=== PATIENT | male | born 1960 ===

== ENCOUNTER 2020-08-17 09:46 | Day surgery (SDC) | payer MEDICAID, SELFPAY ==
--- NOTE | 2020-08-16 09:13 | P.CONAN_ITS ---
Documented by User: Gayle Isidro 08/16/20 13:29 HPI - Anesthesia Eval Consult details Narrative: 59yo M for Upper Endoscopy [facility] Past Medical History Medical History (Updated 08/16/20 @ 12:58 by Gurinder Alvarado) Asthma Chronic back pain Depression H/O fracture of skull Hepatitis C Substance abuse Surgical History Surgical History (Updated 08/16/20 @ 12:58 by Gurinder Alvarado) H/O right inguinal hernia repair Social History Social History Smoking Status: Current every day smoker Cigarettes Per Day: 5.0 Use of substances other than those prescribed or required for medical reasons: No 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 Advance Directives: No Advance Directives Information Provided: No Advance Directives on File: No Meds Allergies Allergy/AdvReac Type Severity Reaction Status Date / Time No Known Allergies Allergy Unverified 06/02/20 17:09 [No Known Allergies*] Home Medications Medication Instructions Recorded Confirmed Type albuterol sulfate 2 puff INHALATION Q4-6H PRN 08/16/20 08/16/20 History budesonide-formoterol [Symbicort] 2 puff INHALATION DAILY 08/16/20 08/16/20 History gabapentin 300 mg PO TID 08/16/20 08/16/20 History Exam Exam Date and Time: August 16, 2020 0913 Assessment and Plan Assessment Anesthesia Assessment: Chart Reviewed Documented by User: Jazmin Boswell 08/17/20 11:16 [facility] Past Medical History Medical History (Updated 08/16/20 @ 12:58 by Gurinder Alvarado) Asthma Chronic back pain Depression H/O fracture of skull Hepatitis C Substance abuse Surgical History Surgical History (Updated 08/16/20 @ 12:58 by Gurinder Alvarado) H/O right inguinal hernia repair Social History Social History Smoking Status: Current every day smoker Cigarettes Per Day: 5.0 Use of substances other than those prescribed or required for medical reasons: No 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 Advance Directives: No Advance Directives Information Provided: No Advance Directives on File: No Meds Allergies Allergy/AdvReac Type Severity Reaction Status Date / Time No Known Allergies Allergy Unverified 06/02/20 17:09 [No Known Allergies*] Home Medications Medication Instructions Recorded Confirmed Type albuterol sulfate 2 puff INHALATION Q4-6H PRN 08/16/20 08/16/20 History budesonide-formoterol [Symbicort] 2 puff INHALATION DAILY 08/16/20 08/16/20 History gabapentin 300 mg PO TID 08/16/20 08/16/20 History Exam Airway Mallampati Class: II (Upper false tooth removable) TM Dist: >3cm Neck ROM: Full Partial: Lower Heart: RRR Lungs: CTA BL Assessment and Plan Assessment Anesthesia Assessment: Anesthesia Plan Discussed and Chart Reviewed Final Anesthetic Review NPO: Yes ASA Class: III Final Preanesthetic Review: Meds/Allgs Chart Reviewed and Consent Obtained/Reviewed Patient Risk: Intermediate Procedure Risk: Intermediate Anesthetic Plan Anesthetic Plan: MAC: Disposition: Standard PACU
[2020-08-16 12:55] VITALS: BMI 20.2
[2020-08-17 11:26] VITALS: BP 169/96; PULSE 49; RESP 16; TEMP 36.9; O2SAT 100
[2020-08-17] MEDS: Lactated Ringers 1,000 ML 100 ML IVCONT (11:43)
--- NOTE | 2020-08-17 12:15 | P.HPSUR_ITS ---
Pre-Procedural Eval Section B Chief Complaint: Hepatic Cirrhosis Relevant Family History (Specify if Yes): No Relevant Social History: Tobacco Use Present Medications: see Short Stay Collaborative assessment Medical History: Significant History (Asthma Chronic back pain Depression H/O fracture of skull Hepatitis C Substance abuse) History of Previous Operations: Relevant previous surgery/procedure and date(s) (hernia repair) Allergies: Allergies Allergy/AdvReac Type Severity Reaction Status Date / Time No Known Allergies Allergy Unverified 06/02/20 17:09 [No Known Allergies*] Review of Systems Sugical H&P ROS: Negative: Constitution, Cardiovascular, Respiratory, Neurolog ical, Psychiatric, Hem-Onc, Allergic/Immunologic, Gastrointestinal, Genitourinary, Musculoskeletal, Integumentary, Endocrine and Eyes/Ears/Nose/Throat Exam Surgical H&P Exam: Normal: HEENT, Normal: Heart, Normal: Lungs, Normal: Extremities, Normal: Abdomen, Normal: Skin and Normal: Neurological Plan Diagnosis/Plan: Unchanged Patient has been examined and remains a candidate for the planned procedure
--- NOTE | 2020-08-17 12:16 | PM.OP ---
Brief Operative Note Date of Service: 08/17/20 Pre-op diagnosis: variceal screening Post-op diagnosis: same Procedure: see op note Surgeon: Zuleika Menjivar MD Anesthesia: MAC Estimated blood loss (mL): 0 Condition: stable Disposition: PACU
--- NOTE | 2020-08-17 12:16 | W.PM.OPN ---
Operative Note Operative Note Date of Service: 08/17/20 Narrative: Procedure Description: EGD FLEXIBLE TRANSORAL UPPER GASTROINTESTINAL ENDOSCOPY UPPER ENDOSCOPY Consent: Indications for the procedure and potential complications of bleeding, perforation, reaction to medications and missed diagnosis were discussed with the patient and informed consent was obtained. Instrument: Olympus GIF H 190 J mid size upper endoscope Monitoring: Vital signs and clinical assessment, continuous EKG monitoring, Pulse oximetry, Carbon Dioxide monitoring and blood pressure monitoring were done throughout the procedure. Procedure: The patient was placed in the left lateral decubitis position and pre-procedure medications were administered and a bite block was placed. The endoscope was inserted into the mouth and advanced under direct vision to the third part of duodenum. A careful inspection was made as the upper endoscope was withdrawn including a retroflexed examination of the proximal stomach; Findings and interventions are described below. Findings: Larynx:normal Esophagus: GE junction at 40 cm, diaphragm hiatus at 42 cm, LA grade A esophagitis noted. No esophageal varices seen Stomach: Patchy gastric erythema. Biopsies were obtained to r/o h pylori. Grade 2 flap valve on retroflexed examination of the cardia. Duodenum: Normal bulb and descending duodenum, Intervention: Biopsies as noted above Impression/Findings: gastritis esophagitis small hiatal hernia PLAN: can use low dose PPI if having sx of reflux repeat EGD in 2 yrs or earlier if any liver decompensation if h pylori pos then treat
[2020-08-17 12:33] VITALS: BP 124/84; PULSE 72; RESP 16; TEMP 36.3; O2SAT 98
[2020-08-17 12:49] VITALS: PULSE 52; RESP 16; O2SAT 98
[2020-08-17 13:02] VITALS: BP 151/92; PULSE 56; RESP 16; O2SAT 100
--- NOTE | 2020-08-17 13:23 | HO.POSTANES ---
Post Anesthesia Evaluation Post Anesthesia Evaluation Vital Signs: Vital Signs Temp Pulse Resp BP Pulse Ox 08/17/20 13:02 97.3 F 56 16 151/92 H 100 08/17/20 12:49 52 16 98 08/17/20 12:33 97.3 F 72 16 124/84 98 08/17/20 11:26 98.4 F 49 L 16 169/96 H 100 Anesthesia: Monitored Mental Status: Awake Pain Control: Satisfactory Nausea/Vomiting: None Hydration: Adequate Anesthesia-Related Issues: No Anes. Related Issues
== END 2020-08-17 13:58 | disposition home or self-care (01) ==
PROVIDERS: Visit Provider Internal Medicine Gastroenterology
PROC: 0DJ08ZZ Inspection of Upper Intestinal Tract, Via Natural or Artificial Opening Endoscopic (ICD-10-PCS; CPT 43235; principal; 2020-08-17 10:40)
DX: K74.60 Unspecified cirrhosis of liver (principal); B19.20 Unspecified viral hepatitis C without hepatic coma; K29.50 Unspecified chronic gastritis without bleeding; B96.81 Helicobacter pylori [H. pylori] as the cause of diseases classified elsewhere; K44.9 Diaphragmatic hernia without obstruction or gangrene; K20.90 Esophagitis, unspecified without bleeding; F11.20 Opioid dependence, uncomplicated; J45.909 Unspecified asthma, uncomplicated; Z79.51 Long term (current) use of inhaled steroids; Z79.899 Other long term (current) drug therapy
CPT/HCPCS: 43239; 88305; 88342

== ENCOUNTER → 2020-08-31 11:01 | Outpatient (BNVA) | payer MEDICAID, SELFPAY | PROVIDERS: PCP Internal Medicine; Referring Provider Internal Medicine; Visit Provider Nurse Practitioner | DX: Z76.89 Persons encountering health services in other specified circumstances (principal) ==

== ENCOUNTER 2020-09-26 07:57 | Outpatient (REF) | payer MEDICAID, SELFPAY ==
--- NOTE | 2020-09-26 | US_ITS ---
EXAMINATION: US ABDOMEN LIMITED CLINICAL INFORMATION: Cirrhosis. COMPARISON: Previous CT scan most recent September 2017 and abdominal ultrasound February 2020 TECHNIQUE: Real-time imaging of the right upper quadrant abdominal viscera. FINDINGS: PANCREAS: Normal. LIVER: Liver echotexture may be slightly heterogeneous. No focal hepatic lesion. The liver is normal in size, shape and contour. There is no intrahepatic biliary duct dilatation seen. GALLBLADDER: Normal. The gallbladder is physiologically distended without evidence of stones, sludge, polyps, wall thickening or pericholecystic fluid. COMMON BILE DUCT: Normal in caliber measuring 0.1 to 0.5 cm in diameter. RIGHT KIDNEY: Normal. No hydronephrosis. No renal calculi or focal parenchymal lesions. The kidney measures 9.6 cm in maximum dimension. FREE FLUID: None. US/US abdomen limited IMPRESSION: Question slightly heterogeneous liver echotexture. No focal liver lesion is seen. Otherwise unremarkable exam.
== END 2020-09-26 07:58 | disposition home or self-care (01) ==
LOC: HO.US 07:57
PROVIDERS: PCP Family Medicine; Visit Provider Family Medicine
DX: K74.60 Unspecified cirrhosis of liver (principal)
CPT/HCPCS: 76705

== ENCOUNTER → 2020-10-12 11:25 | Outpatient (BNVA) | payer MEDICAID, SELFPAY | PROVIDERS: Visit Provider Nurse Practitioner | DX: Z76.89 Persons encountering health services in other specified circumstances (principal) ==

== ENCOUNTER 2021-03-10 10:33 | Outpatient (REF) | payer MEDICAID, SELFPAY | END 2021-03-10 10:34 | disposition home or self-care (01) | LOC: HO.LNP 10:33 | PROVIDERS: PCP Nurse Practitioner; Referring Provider Nurse Practitioner; Visit Provider Nurse Practitioner | DX: A04.8 Other specified bacterial intestinal infections (principal); K74.60 Unspecified cirrhosis of liver; F17.210 Nicotine dependence, cigarettes, uncomplicated; Z86.19 Personal history of other infectious and parasitic diseases | CPT/HCPCS: 87338; 99212 ==

== ENCOUNTER → 2021-04-25 08:40 | Outpatient (BNVA) | payer MEDICAID, SELFPAY | PROVIDERS: PCP Nurse Practitioner; Visit Provider Nurse Practitioner ==

== ENCOUNTER 2021-11-15 11:15 | Outpatient (REF) | payer MEDICAID, SELFPAY ==
--- NOTE | ~2021-11-15 | US_ITS ---
EXAMINATION: US ABDOMEN COMPLETE CLINICAL INFORMATION: Cirrhosis. HCG screening. COMPARISON: Ultrasound abdomen limited 09/26/2020 and 02/16/2020. CT abdomen and pelvis 09/26/2017. TECHNIQUE: Real-time imaging of the abdominal viscera. FINDINGS: PANCREAS: Normal. ABDOMINAL AORTA: The proximal, mid, and distal segments are normal in caliber. INFERIOR VENA CAVA: Visualized portions are normal. LIVER: Normal. The liver is normal in size. The liver contour is normal. Parenchymal echogenicity is normal. No focal hepatic lesion. There is no intrahepatic biliary duct dilatation seen. GALLBLADDER: Gallbladder wall thickness is 0.2 cm.. The gallbladder is physiologically distended without evidence of stones, sludge, polyps, wall thickening or pericholecystic fluid. COMMON BILE DUCT: Normal in caliber measuring 0.6 cm in diameter. RIGHT KIDNEY: Normal. No hydronephrosis. No renal calculi or focal parenchymal lesions. The kidney measures 9.4 cm in maximum dimension. LEFT KIDNEY: Normal. No hydronephrosis. No renal calculi or focal parenchymal lesions. The kidney measures 9.1 cm in maximum dimension. SPLEEN: Normal. The spleen measures 8.0 cm in maximum dimension. FREE FLUID: None. US/US abdomen complete IMPRESSION: Unremarkable complete abdomen ultrasound.
== END 2021-11-15 11:16 | disposition home or self-care (01) ==
LOC: HO.US 11:15
PROVIDERS: PCP Nurse Practitioner; Visit Provider Nurse Practitioner
DX: K74.60 Unspecified cirrhosis of liver (principal)
CPT/HCPCS: 76700

== ENCOUNTER 2022-05-29 09:26 | Outpatient (REF) | payer MEDICAID, SELFPAY ==
--- NOTE | ~2022-05-29 | US_ITS ---
EXAMINATION: US ABDOMEN COMPLETE CLINICAL INFORMATION: Cirrhosis of liver. COMPARISON: Ultrasound abdomen complete dated 11/15/2021. Ultrasound abdomen limited dated 09/26/2020. CT abdomen and pelvis without contrast dated 09/26/2017. TECHNIQUE: Real-time imaging of the abdominal viscera. FINDINGS: PANCREAS: Normal. ABDOMINAL AORTA: The proximal, mid, and distal segments are normal in caliber. INFERIOR VENA CAVA: Visualized portions are normal. LIVER: Normal. The liver is normal in size. The liver contour is normal. Parenchymal echogenicity is normal. No focal hepatic lesion. There is no intrahepatic biliary duct dilatation seen. GALLBLADDER: There is a small gallstone in the gallbladder. The gallbladder is otherwise normal. COMMON BILE DUCT: Normal in caliber measuring 0.7 cm in diameter. RIGHT KIDNEY: Normal. No hydronephrosis. No renal calculi or focal parenchymal lesions. The kidney measures 9.1 cm in maximum dimension. LEFT KIDNEY: There is a 3 mm echogenic density in the midpole with twinkle artifact questionable for a small stone. No hydronephrosis or focal parenchymal lesions. The kidney measures 8.7 cm in maximum dimension. SPLEEN: Normal. The spleen measures 8.1 cm in maximum dimension. FREE FLUID: None. US/US abdomen complete IMPRESSION: Small gallstone and question small left renal stone. Normal-appearing liver.
== END 2022-05-29 09:27 | disposition home or self-care (01) ==
LOC: HO.US 09:26
PROVIDERS: Visit Provider Internal Medicine
DX: K74.60 Unspecified cirrhosis of liver (principal)
CPT/HCPCS: 76700

== ENCOUNTER 2022-07-09 17:34 | Emergency (ER) | payer MEDICAID, SELFPAY ==
--- NOTE | ~2022-07-09 | XR_ITS ---
EXAMINATION: XR SHOULDER, LEFT CLINICAL INFORMATION: Fall COMPARISON: None TECHNIQUE: AP external rotation, Grashey, scapular Y, and axillary views of the left shoulder. FINDINGS: The bones and soft tissues are normal. No fracture. Glenohumeral and acromioclavicular alignment is anatomic with normal joint space. No abnormal soft tissue calcifications. XR/XR shoulder LT min 2V IMPRESSION: Normal left shoulder.
--- NOTE | ~2022-07-09 | CT_ITS ---
EXAMINATION: CT CHEST WITHOUT CONTRAST CLINICAL INFORMATION: Fall. Upper chest pain. COMPARISON: 01/16/2015 TECHNIQUE: Multidetector volumetric CT imaging of the chest was done. Axial MIP volume rendering provided. Sagittal and coronal reformatted images were obtained. This CT examination was performed using dose optimization techniques as appropriate, variously including the following: *Automated exposure control *Adjustment of mA and/or kV according to patient size (this includes techniques or standardized protocols for targeted exams where dose is matched to indication/reason for exam; i.e. 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 Mild bronchial wall thickening with scattered bronchial filling defects. Moderate centrilobular and paraseptal emphysema. No dense consolidation. No pneumothorax. Calcified granulomata are noted. Unchanged 0.3 cm subpleural left upper lobe nodule on series 5 image 270. This suggests benign etiology. MEDIASTINUM: Normal heart size. No pericardial effusion. No mediastinal lymphadenopathy. CORONARY ARTERY CALCIFICATION: None visualized on this study. PLEURA: There is no pleural effusion. No pleural mass or thickening. AXILLA: No lymphadenopathy. UPPER ABDOMEN: Unremarkable. OSSEOUS STRUCTURES: No acute fractures. The ribs are intact. The sternum is intact. Vertebral body height and alignment maintained. CT/CT chest wo IV con IMPRESSION: 1. No acute traumatic findings of the chest. 2. Moderate emphysema. Fleischner guidelines were followed.
--- NOTE | ~2022-07-09 | CT_ITS ---
EXAMINATION: CT HEAD WITHOUT CONTRAST CT CERVICAL SPINE WITHOUT CONTRAST CLINICAL INFORMATION: Fall. COMPARISON: None. TECHNIQUE: Imaging was performed from the skull base to vertex without intravenous administration of contrast. In addition, helical noncontrast CT imaging was acquired through the cervical spine and source images were reviewed along with axial reconstructions and sagittal and coronal MPRs. [This CT examination was performed using dose optimization techniques as appropriate, variously including the following: *Automated exposure control *Adjustment of mA and/or kV according to patient size (this includes techniques or standardized protocols for targeted exams where dose is matched to indication/reason for exam; i.e. extremities or head) *Use of iterative reconstruction technique] DLP: 901 mGy-cm FINDINGS: HEAD: No intracranial mass, hemorrhage, or midline shift is visualized. The ventricles and sulci are proportional. No extra-axial collections are identified. The paranasal sinuses and mastoid air cells are well aerated. CERVICAL SPINE: There is no evidence of acute cervical spine fracture. Vertebral bodies remain normal in height. Cervical vertebrae have normal alignment. There is multilevel degenerative spondylosis of the cervical spine with disc height narrowing and endplate spurs and facet joint arthrosis No pre- or paravertebral soft tissue abnormality is identified. Moderate Centrilobular emphysematous change of the upper lobes. CT/CT head/brain wo IV con IMPRESSION: 1. No acute intracranial pathology. 2. No CT evidence of acute cervical spine fracture or traumatic subluxation
--- NOTE | ~2022-07-09 | CT_ITS ---
EXAMINATION: CT HEAD WITHOUT CONTRAST CT CERVICAL SPINE WITHOUT CONTRAST CLINICAL INFORMATION: Fall. COMPARISON: None. TECHNIQUE: Imaging was performed from the skull base to vertex without intravenous administration of contrast. In addition, helical noncontrast CT imaging was acquired through the cervical spine and source images were reviewed along with axial reconstructions and sagittal and coronal MPRs. [This CT examination was performed using dose optimization techniques as appropriate, variously including the following: *Automated exposure control *Adjustment of mA and/or kV according to patient size (this includes techniques or standardized protocols for targeted exams where dose is matched to indication/reason for exam; i.e. extremities or head) *Use of iterative reconstruction technique] DLP: 901 mGy-cm FINDINGS: HEAD: No intracranial mass, hemorrhage, or midline shift is visualized. The ventricles and sulci are proportional. No extra-axial collections are identified. The paranasal sinuses and mastoid air cells are well aerated. CERVICAL SPINE: There is no evidence of acute cervical spine fracture. Vertebral bodies remain normal in height. Cervical vertebrae have normal alignment. There is multilevel degenerative spondylosis of the cervical spine with disc height narrowing and endplate spurs and facet joint arthrosis No pre- or paravertebral soft tissue abnormality is identified. Moderate Centrilobular emphysematous change of the upper lobes. CT/CT cervical spine wo IV con IMPRESSION: 1. No acute intracranial pathology. 2. No CT evidence of acute cervical spine fracture or traumatic subluxation
[2022-07-09 19:35] VITALS: BP 156/104; PULSE 81; RESP 16; TEMP 37.5; O2SAT 97; BMI 20.5
--- NOTE | 2022-07-09 22:33 | ED.FALL ---
HPI - Fall General Chief Complaint: Fall Stated Complaint: fell down stairs,head lac, Time Seen by Provider: 07/09/22 22:32 Source: patient Mode of arrival: ambulatory Limitations: no limitations History of Present Illness HPI Narrative: Patient apparently with no significant past medical history apparently was going upstairs before landing felt lightheaded, almost passed out and fell backwards hitting his left shoulder to the wall. Came here with superficial abrasion to the left eyebrow and contusion to the left shoulder patient does not happen exactly what happened but patient has this episodes in the past Related Data Home Medications Medication Instructions Recorded Confirmed albuterol sulfate 90 mcg/actuation 2 puff inhalation Q4-6H PRN 08/16/20 08/16/20 aerosol inhaler Shortness Of Breath budesonide-formoterol HFA 80 2 puff inhalation DAILY 08/16/20 08/16/20 mcg-4.5 mcg/actuation aerosol inhaler (Symbicort) gabapentin 300 mg capsule 300 mg PO TID 08/16/20 08/16/20 Previous Rx's Medication Instructions Recorded amoxicillin 500 mg capsule 1,000 mg PO BID 14 days #56 caps 08/25/20 clarithromycin 500 mg tablet 500 mg PO BID 14 days #28 tabs 08/25/20 pantoprazole 20 mg tablet,delayed 20 mg PO BID 14 days #28 tabs 08/25/20 release tramadol 50 mg tablet 50 mg PO Q6H PRN pain #20 tabs 07/10/22 Allergies Allergy/AdvReac Type Severity Reaction Status Date / Time No Known Allergies Allergy Verified 04/25/21 08:40 [No Known Allergies*] Review of Systems Review of Systems: Yes all other systems are reviewed and are negative PMFSH Past Medical History Medical History Asthma Chronic back pain Depression H/O fracture of skull Hepatitis C Substance abuse Surgical History H/O right inguinal hernia repair History of esophagogastroduodenoscopy (EGD) Family History Family History Mother Stroke Heart problem Father Stroke Heart problem Social History Social History Household Members: Friend(s) Alcohol intake: current Alcohol intake frequency: holidays/special occasions only Cigarettes Per Day: 5.0 Advance Directives: No Advance Directives Information Provided: No Current occupational status: disabled Physical Exam Vital Signs: Vital Signs: Last Vital Signs Temp 99 F 07/10/22 00:27 Pulse 76 07/10/22 00:27 Resp 16 07/10/22 00:27 BP 144/76 H 07/10/22 00:27 Pulse Ox 95 07/10/22 00:27 O2 Del Method 07/10/22 00:27 BMI result Body Mass Index 20.5 Appearance: Alert. Oriented X3. No acute distress. Eyes: PERRLA, No Nystagmus superficial abrasion left eyebrow ENT: Pharynx normal. Oral Mucosa moist Neck: Normal inspection. Neck supple. CVS: Normal heart rate and rhythm. Pulses normal. Respiratory: No respiratory distress. Equal air entry bilateral, no wheezing/rales/rhonchi Abdomen: Soft and nontender. Bowel sounds are present, no mass palpable, no CVA tenderness Skin: Skin warm and dry. Normal skin color. Normal skin turgor. Extremities: No lower extremity edema. No calf tenderness skin tear right arm, contusion to left shoulder limited abduction because of pain no deformity Neuro: Oriented X 3. No motor deficit. No sensory deficit.No cerebellar signs , cranial nerves II-XII intact Procedures Laceration Laceration 1: Site: upper extremity Side (If applicable): right Size (cm): 4 Description: other (Skin tear) Depth: simple, single layer Skin layer closed with: other (Dermabond) MDM - Fall MDM Narrative Medical decision making narrative: Patient's leukocytosis etiology not very clear no source of infection patient is febrile CT chest CT head CT C-spine in the discharge patient right arm skin tear was approximated using Dermabond Lab Data Result diagrams: 07/09/22 23:46 07/09/22 23:46 Labs: Lab Results 07/09/22 07/09/22 07/09/22 Range/Units 23:46 23:46 23:46 WBC 16.2 H (4.8-10.8) X10*3/uL RBC 4.48 L (4.60-5.80) X10*6/uL Hgb 13.9 L (14.0-18.0) g/dl Hct 40.6 L (42.0-52.0) % MCV 90.6 (80.0-98.0) fL MCH 31.0 (27.0-33.0) pg MCHC 34.2 (31.0-36.0) g/dl RDW 14.2 (11.0-16.0) % Plt Count 247 (160-400) X10*3/uL MPV 9.1 L (9.4-12.4) fL Immature Gran % (Auto) 0.4 (0.0-0.4) % Neut % (Auto) 73.9 H (45-73) % Lymph % (Auto) 17.1 L (20-40) % [place] % (Auto) 8.3 (2-11) % Eos % (Auto) 0.2 (0-4) % Baso % (Auto) 0.1 (0-2) % Lymph # (Auto) 2.8 (1.2-4.9) X10*3/uL [place] # (Auto) 1.3 H (0.1-1.2) X10*3/uL Eos # (Auto) 0.0 (0.0-0.4) X10*3/uL Baso # (Auto) 0.0 (0.0-0.2) X10*3/uL Abs Immat Gran (auto) 0.06 H (0.00-0.03) X10*3/uL Absolute Neuts (auto) 12.0 H (2.0-8.3) x10*3/uL Absolute Nucleated RBC 0.000 (0.0-0.012) X10*3/uL Nucleated RBC % (auto) 0.0 (0.0-0.2) /100WBC Sodium 142 (135-145) mmol/L Potassium 4.2 (3.3-5.1) mmol/L Chloride 103 (96-108) mmol/L Carbon Dioxide 25 (22-29) mmol/L Anion Gap 18 (12-20) BUN 15 (9-16) mg/dL Creatinine 1.04 (0.5-1.4) mg/dL Estim Creat Clear Calc 56.6 Estimated GFR > 60 Random Glucose 117 H (60-115) mg/dL Calcium 9.2 (8.4-10.2) mg/dL Magnesium 1.8 (1.6-2.6) mg/dL Total Bilirubin 0.7 (0.0-1.0) mg/dL AST 37 (5-37) U/L ALT 16 (0-40) U/L Alkaline Phosphatase 62 (39-117) U/L Troponin I High Sens 3.6 (<3.5-35.0) ng/L Total Protein 7.5 (6.5-8.0) g/dL Albumin 4.6 (3.5-5.0) g/dL Urine Color Urine Appearance Urine pH (5.0-9.0) Ur Specific [place] (1.005-1.025) Urine Protein (Neg-Trace) mg/dL Urine Glucose (UA) (Negative) mg/dL Urine Ketones (Negative) mg/dL Urine Blood (Negative) Urine Nitrite (Negative) Ur Leukocyte Esterase (Negative) 07/10/22 Range/Units 01:09 WBC (4.8-10.8) X10*3/uL RBC (4.60-5.80) X10*6/uL Hgb (14.0-18.0) g/dl Hct (42.0-52.0) % MCV (80.0-98.0) fL MCH (27.0-33.0) pg MCHC (31.0-36.0) g/dl RDW (11.0-16.0) % Plt Count (160-400) X10*3/uL MPV (9.4-12.4) fL Immature Gran % (Auto) (0.0-0.4) % Neut % (Auto) (45-73) % Lymph % (Auto) (20-40) % [place] % (Auto) (2-11) % Eos % (Auto) (0-4) % Baso % (Auto) (0-2) % Lymph # (Auto) (1.2-4.9) X10*3/uL [place] # (Auto) (0.1-1.2) X10*3/uL Eos # (Auto) (0.0-0.4) X10*3/uL Baso # (Auto) (0.0-0.2) X10*3/uL Abs Immat Gran (auto) (0.00-0.03) X10*3/uL Absolute Neuts (auto) (2.0-8.3) x10*3/uL Absolute Nucleated RBC (0.0-0.012) X10*3/uL Nucleated RBC % (auto) (0.0-0.2) /100WBC Sodium (135-145) mmol/L Potassium (3.3-5.1) mmol/L Chloride (96-108) mmol/L Carbon Dioxide (22-29) mmol/L Anion Gap (12-20) BUN (9-16) mg/dL Creatinine (0.5-1.4) mg/dL Estim Creat Clear Calc Estimated GFR Random Glucose (60-115) mg/dL Calcium (8.4-10.2) mg/dL Magnesium (1.6-2.6) mg/dL Total Bilirubin (0.0-1.0) mg/dL AST (5-37) U/L ALT (0-40) U/L Alkaline Phosphatase (39-117) U/L Troponin I High Sens (<3.5-35.0) ng/L Total Protein (6.5-8.0) g/dL Albumin (3.5-5.0) g/dL Urine Color Yellow Urine Appearance Clear Urine pH 6.5 (5.0-9.0) Ur Specific [place] <= 1.005 (1.005-1.025) Urine Protein Negative (Neg-Trace) mg/dL Urine Glucose (UA) Negative (Negative) mg/dL Urine Ketones Negative (Negative) mg/dL Urine Blood Negative (Negative) Urine Nitrite Negative (Negative) Ur Leukocyte Esterase Negative (Negative) Discharge Plan Discharge Clinical Impression: Contusion of left shoulder Patient Disposition: Home, Self-Care Instructions: Contusion in Adults (ED), Fall Prevention (ED) Additional Instructions: Apply ice take pain medication as prescribed Prescriptions: New tramadol 50 mg tablet 50 mg PO Q6H PRN (Reason: pain) Qty: 20 0RF No Action clarithromycin 500 mg tablet 500 mg PO BID 14 Days Qty: 28 0RF amoxicillin 500 mg capsule 1,000 mg PO BID 14 Days Qty: 56 0RF pantoprazole 20 mg tablet,delayed release (DR/EC) 20 mg PO BID 14 Days Qty: 28 0RF gabapentin 300 mg Capsule 300 mg PO TID albuterol sulfate 90 mcg/actuation Hfa Aerosol Inhaler 2 puff INHALATION Q4-6H PRN (Reason: Shortness Of Breath) budesonide-formoterol [Symbicort] 80-4.5 mcg/actuation Hfa Aerosol Inhaler 2 puff INHALATION DAILY Interventions: ED Discharge Assessment Last Done: 07/10/22 02:11 Discharge Date/Time: 07/10/22 02:11
--- NOTE | 2022-07-09 22:53 | ECG_ITS ---
Test Reason : WEAKNESS Blood Pressure : / mmHG Vent. Rate : 062 BPM Atrial Rate : 062 BPM P-R Int : 126 ms QRS Dur : 080 ms QT Int : 374 ms P-R-T Axes : 085 058 063 degrees QTc Int : 379 ms Normal sinus rhythm Normal ECG When compared with ECG of 06-SEP-2017 20:43, No significant change was found Referred By: Abimael Jackson Electronically Signed By:JOSE FAYE MD
[2022-07-09 23:50] LABS: MANUAL DIFF FLAG NO
[2022-07-09 23:51] LABS: Basophils Percent Auto 0.1 % (0-2); Eosinophils Percent Auto 0.2 % (0-4); Hematocrit 40.6 % (42.0-52.0); Hemoglobin 13.9 g/dl (14.0-18.0); Imm Gran Abs Auto 0.06 X10*3/uL (0.00-0.03); Imm Gran Pct Auto 0.4 % (0.0-0.4); Lymphocytes Absolute Auto 2.8 X10*3/uL (1.2-4.9); Lymphocytes Percent Auto 17.1 % (20-40); Mean Corpuscular HGB Conc 34.2 g/dl (31.0-36.0); Mean Corpuscular Volume 90.6 fL (80.0-98.0); Mean Platelet Volume 9.1 fL (9.4-12.4); Monocytes Absolute Auto 1.3 X10*3/uL (0.1-1.2); Monocytes Percent Auto 8.3 % (2-11); Neutrophils Percent Auto 73.9 % (45-73); Platelet Count 247 X10*3/uL (160-400); Red Blood Count 4.48 X10*6/uL (4.60-5.80); Red Cell Distribution Width 14.2 % (11.0-16.0); White Blood Count 16.2 X10*3/uL (4.8-10.8)
[2022-07-10 00:07] LABS: Alanine Aminotransferase 16 U/L (0-40); Albumin Level 4.6 g/dL (3.5-5.0); Alkaline Phosphatase 62 U/L (39-117); Anion Gap 18 (12-20); Aspartate Amino Transferase 37 U/L (5-37); Bilirubin Total 0.7 mg/dL (0.0-1.0); Blood Urea Nitrogen 15 mg/dL (9-16); Calcium 9.2 mg/dL (8.4-10.2); Carbon Dioxide 25 mmol/L (22-29); Chloride 103 mmol/L (96-108); Creatinine Clr Calc Pharmacy 56.6; Estimated Glomerular Filt Rate > 60; Glucose Random 117 mg/dL (60-115); Magnesium 1.8 mg/dL (1.6-2.6); Potassium 4.2 mmol/L (3.3-5.1); Sodium 142 mmol/L (135-145); Total Protein 7.5 g/dL (6.5-8.0)
[2022-07-10 00:10] LABS: Troponin-I High Sensitivity 3.6 ng/L (<3.5-35.0)
[2022-07-10 00:27] VITALS: BP 144/76; PULSE 76; RESP 16; TEMP 37.2; O2SAT 95
[2022-07-10] MEDS: oxyCODONE HCl Immed Release 5 MG TABLET 10 MG PO (01:04)
[2022-07-10 01:29] LABS: Appearance Urine Clear; Color Urine Yellow; Glucose Urine UA Negative (Negative); Leukocyte Esterase Urine Negative (Negative); Nitrite Urine Negative (Negative); PH 6.5 (5.0-9.0); Specific Gravity - Urine <= 1.005 (1.005-1.025); Urine Blood Negative (Negative); Urine Ketones Negative (Negative); Urine Protein Negative (Neg-Trace)
--- NOTE | 2022-07-10 02:11 | PC.NURSE ---
Discharge instructions reviewed with pt. Pt verbalizes understanding.
== END 2022-07-10 02:11 | disposition home or self-care (01) ==
PROVIDERS: Emergency Provider Internal Medicine
DX: S41.111A Laceration without foreign body of right upper arm, initial encounter (principal); S00.212A Abrasion of left eyelid and periocular area, initial encounter; S40.012A Contusion of left shoulder, initial encounter; W10.8XXA Fall (on) (from) other stairs and steps, initial encounter; Y93.89 Activity, other specified; Y92.018 Other place in single-family (private) house as the place of occurrence of the external cause; Y99.9 Unspecified external cause status
CPT/HCPCS: 12002; 36415; 70450; 71250; 72125; 73030; 80053; 81003; 83735; 84484; 85025; 93005; 99284

== ENCOUNTER → 2022-08-24 09:37 | Outpatient (BNVA) | payer MEDICAID, SELFPAY | PROVIDERS: Visit Provider Physician Assistant | DX: S46.009A Unspecified injury of muscle(s) and tendon(s) of the rotator cuff of unspecified shoulder, initial encounter (principal); S16.1XXA Strain of muscle, fascia and tendon at neck level, initial encounter | CPT/HCPCS: 99202 ==

== ENCOUNTER 2022-09-04 12:45 | Outpatient (REF) | payer MEDICAID, SELFPAY ==
--- NOTE | ~2022-09-04 | MR_ITS ---
EXAMINATION: MR SHOULDER WITHOUT CONTRAST, LEFT CLINICAL INFORMATION: Fall from second floor. Left shoulder pain. Decreased range of motion. COMPARISON: None TECHNIQUE: MR images of the shoulder were obtained on a 1.5 Michelle high-field strength scanner without intravenous contrast material. FINDINGS: ROTATOR CUFF: Mild subscapularis tendinosis. No rotator cuff tears. No muscle atrophy or fatty infiltration. BICEPS: Normal. CORACOACROMIAL ARCH: The undersurface of the acromion is curved with no subacromial spur. The acromioclavicular ligaments are torn with associated periosteal stripping at the distal clavicle, cephalad displacement of the distal clavicle, and widening of the acromioclavicular joint to 1 cm. There is a mildly complex effusion at the AC joint. The coracoclavicular ligaments are partially torn with surrounding soft tissue edema and fluid. Coracoclavicular distance remains normal. No significant subacromial subdeltoid bursal fluid. LABRUM/CAPSULE: The posterosuperior labrum is ill defined with intermediate signal intensity and superficial fraying, most consistent with labral fraying. Joint capsule is normal. GLENOHUMERAL JOINT/MARROW: No fracture or malalignment. Articular cartilage is normal. There is subcortical cystic change at the humeral head posterosuperiorly. MR/MR shoulder LT wo con IMPRESSION: Juanito type II acromioclavicular separation injury with complete disruption of the acromioclavicular ligaments and partial tear of the coracoclavicular ligaments. Posterosuperior labral fraying. No discrete tears. Mild subscapularis tendinosis. Intact rotator cuff.
== END 2022-09-04 12:46 | disposition home or self-care (01) ==
LOC: HO.MRI 12:45
PROVIDERS: Visit Provider Physician Assistant
DX: S46.002A Unspecified injury of muscle(s) and tendon(s) of the rotator cuff of left shoulder, initial encounter (principal)
CPT/HCPCS: 73221

== ENCOUNTER → 2022-10-10 14:43 | Outpatient (BNVA) | payer MEDICAID, SELFPAY | PROVIDERS: PCP Nurse Practitioner; Visit Provider Physician Assistant | DX: S43.102A Unspecified dislocation of left acromioclavicular joint, initial encounter (principal); X58.XXXA Exposure to other specified factors, initial encounter; Y93.9 Activity, unspecified; Y92.9 Unspecified place or not applicable; Y99.8 Other external cause status | CPT/HCPCS: 99212 ==

== ENCOUNTER 2023-04-11 10:54 | Outpatient (REF) | payer MEDICAID, SELFPAY ==
[2023-04-11 13:34] LABS: MANUAL DIFF FLAG NO
[2023-04-11 13:54] LABS: Basophils Absolute Auto 0.1 X10*3/uL (0.0-0.2); Basophils Percent Auto 0.5 % (0-2); Eosinophils Absolute Auto 0.2 X10*3/uL (0.0-0.4); Eosinophils Percent Auto 1.6 % (0-4); Hematocrit 47.4 % (42.0-52.0); Hemoglobin 15.4 g/dl (14.0-18.0); Imm Gran Abs Auto 0.04 X10*3/uL (0.00-0.03); Imm Gran Pct Auto 0.4 % (0.0-0.4); Lymphocytes Absolute Auto 2.2 X10*3/uL (1.2-4.9); Lymphocytes Percent Auto 20.5 % (20-40); Mean Corpuscular HGB Conc 32.5 g/dl (31.0-36.0); Mean Corpuscular Hemoglobin 30.8 pg (27.0-33.0); Mean Corpuscular Volume 94.8 fL (80.0-98.0); Mean Platelet Volume 10.4 fL (9.4-12.4); Monocytes Absolute Auto 0.9 X10*3/uL (0.1-1.2); Monocytes Percent Auto 8.8 % (2-11); Neutrophils Absolute Auto 7.2 x10*3/uL (2.0-8.3); Neutrophils Percent Auto 68.2 % (45-73); Platelet Count 303 X10*3/uL (160-400); Red Cell Distribution Width 14.2 % (11.0-16.0); White Blood Count 10.6 X10*3/uL (4.8-10.8)
[2023-04-11 14:11] LABS: Alanine Aminotransferase 17 U/L (0-40); Alkaline Phosphatase 81 U/L (39-117); Anion Gap 18 (12-20); Aspartate Amino Transferase 35 U/L (5-37); Bilirubin Total 0.4 mg/dL (0.0-1.0); Blood Urea Nitrogen 16 mg/dL (9-16); Calcium 10.5 mg/dL (8.4-10.2); Carbon Dioxide 25 mmol/L (22-29); Chloride 103 mmol/L (96-108); Cholesterol 126 mg/dL; Estimated Glomerular Filt Rate > 60; Glucose Random 92 mg/dL (60-115); HDL Cholesterol 38 mg/dL; LDL Cholesterol Calculated 59 mg/dl; Potassium 5.1 mmol/L (3.3-5.1); Sodium 141 mmol/L (135-145); Total Protein 8.6 g/dL (6.5-8.0); Triglycerides 149 mg/dL
== END 2023-04-11 10:55 | disposition home or self-care (01) ==
LOC: HO.HHCL 10:54
PROVIDERS: Visit Provider Registered Nurse
DX: Z00.00 Encounter for general adult medical examination without abnormal findings (principal); E78.2 Mixed hyperlipidemia
CPT/HCPCS: 36415; 80053; 80061; 85025

== ENCOUNTER 2023-05-15 10:17 | Outpatient (AMB) | payer MEDICAID, SELFPAY ==
--- NOTE | 2023-05-15 10:35 | MHC.OFFVIS ---
Intake Vital Signs 05/15/23 10:39 05/15/23 11:07 Height 5 ft 4 in 5 ft 5 in Weight 117 lb 4.575 oz 114 lb BMI 20.1 19.0 BP 143/85 H Blood Pressure Location Rt brachial Position Sitting Pulse 51 Intake Visit Reasons: Colonoscopy Screening/Follow up Liver Cirrhosis Intake Note: Patient presents to in office visit today in follow up of liver cirrhosis and colonoscopy screening. CC: Pt c/o weight loss, poor appetite, and he feels he digest food too slowly. 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 pylori infection: ?Comment: Discovered on 08/2020 EGD, 02/2021 confirmed eradicated by stool antigen ?Code(s): A04.8 - Other specified bacterial intestinal infections ?Plan: He continues to feel well and has no pain in the stomach.? I advised him that the H pylori test is negative so it seems likely that this has in fact been resolved. He continues to have either eating habits and does not really get hungry during the day but does eat more later in the day.? He says he has been this way since he was 9 or 10 years old so I think this is just a habit that his body has adapted to.? He is not underweight so I do not find this terribly concerning. At this point we really have nothing else to follow up by itself I wished him well in good health and he has any other GI problems in the future he can feel free to contact us. Telehealth LABS: Laboratory Tests 11/27/19 04/11/23 04/11/23 09:49 10:58 10:58 Hgb 15.4 Hct 47.4 MCV 94.8 Plt Count 303 Total Bilirubin 0.4 AST 35 ALT 17 Alkaline Phosphata se 81 Hep C Viral Load <15, <1.18 TODAYS VISIT Icelandic #Greta Live PATIENT HAS BEEN LOST TO FOLLOW-UP SINCE 2020 He says he has had a poor appetite and that is his concern. He is losing weight down 2 lbs since 2021. He feels like food just sits in his stomach until he lays down then I feel the food go down. He will have bloating. No pain, no N/V. His stools are soft and daily. He finds he HAS to schedule eating or he will not r/t no hunger. He used to like to eat meats but now finds he does not want this. He is taking vitamins and shakes and sweets AND breads, I only want to eat LIGHT. He has tried MJ but this does not stimulate his appetite well. Will try megace, needs pill prep for EGD/colonoscopy. On omeprazole and mirtazepine now. No longer on methadone. ROV 4 weeks. 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 Review of Systems Const Denies fatigue, Denies fever(s), Denies night sweats, Reports poor appetite and Reports weight loss ENT Reports Normal hearing present, Denies dental pain, Denies dysphagia, Denies hearing loss, Denies mouth pain, Denies odynophagia, Denies throat swelling, Denies tongue swelling and Reports other (Dentition adequate) Card Reports no additional complaints Resp Reports no additional complaints GI Denies abdominal pain, Denies melena, Reports bloating, Denies hematochezia, Denies constipation, Denies GI cramping, Denies dysphagia, Denies excessive flatus, Denies early satiety, Reports heartburn, Denies diarrhea, Denies nausea, Denies odynophagia, Denies vomiting and Denies hematemesis Skin/Breast Denies pruritus, Denies lesions, Denies rash and Denies jaundice Neuro Reports Normal hearing present and Denies Abnormal speech present Endo Denies fatigue Aller/Immun Denies throat swelling and Denies tongue swelling Physical Exam Vital Signs: Last Vital Signs Pulse 51 05/15/23 10:39 BP 143/85 H 05/15/23 10:39 BMI result Body Mass Index 19.0 Const General: cooperative, no acute distress, well developed and well groomed Nutritional Appearance: well nourished and thin Orientation/consciousness: oriented to person, oriented to place and oriented to time Limitations: language barrier HEENT Head: Yes normocephalic and Yes atraumatic Eyes General: appearance normal, both eyes and all related structures Pupils: Equal, round and reactive pupils present Neck Neck: Yes normal visual inspection and Yes no lymphadenopathy Thyroid: Thyroid normal Resp Effort & Inspection: normal respiratory effort and able to speak in complete sentences Auscultation: clear to auscultation bilaterally Cardio Rate: regular rate Rhythm: regular rhythm Heart sounds: Normal, physiologic split S2 sound present Peripheral pulses: radial pulses present and posterior tibial pulses present GI Inspection: No distended and No Abdominal panniculus present Palpation (GI): Soft to palpation, nontender, no guarding, not rigid and No hepatosplenomegaly present Percussion: Yes normal to percussion Auscultation: normal bowel sounds Rectal Exam - Male: Yes deferred Skin General skin exam: no rashes or lesions noted, turgor normal, skin not dry, no jaundice, No spider nevi and no striae Rashes: no rashes Nails: normal Neuro General: oriented to person, oriented to place and oriented to time Cranial nerves: Yes Equal, round and reactive pupils present and Yes Normal hearing present Speech: No Abnormal speech present Extrem General: Yes normal to inspection, No clubbing, No cyanosis and No edema Psych Appearance: grossly normal and well kempt Mental Status: mental status grossly normal Speech and movement: Normal speech and movement present Affect: normal affect Attitude: cooperative Thought process: Normal thought process present and not confabulating Thought content: Normal thought content present Insight: Limited insight present (Psych) Judgement: Limited judgement present (Psych) Results Reviewed Results Reviewed: Laboratory Tests 11/27/19 04/11/23 04/11/23 09:49 10:58 10:58 Hgb 15.4 Hct 47.4 MCV 94.8 Plt Count 303 Total Bilirubin 0.4 AST 35 ALT 17 Alkaline Phosphatase 81 Hep C Viral Load <15, <1.18 Assessment & Plan Assessment & Plan (1) Cirrhosis: Comment: 08/2020 EGD no esophageal varices, managed at the primary location Code(s): K74.60 - Unspecified cirrhosis of liver Plan: Icelandic #Greta Live PATIENT HAS BEEN LOST TO FOLLOW-UP SINCE 2020 He says he has had a poor appetite and that is his concern. He is losing weight down 2 lbs since 2021. He feels like food just sits in his stomach until he lays down then I feel the food go down. He will have bloating. No pain, no N/V. His stools are soft and daily. He finds he HAS to schedule eating or he will not r/t no hunger. He used to like to eat meats but now finds he does not want this. He is taking vitamins and shakes and sweets AND breads, I only want to eat LIGHT. He has tried MJ but this does not stimulate his appetite well. Will try megace, needs pill prep for EGD/colonoscopy. On omeprazole and mirtazepine now. No longer on methadone. ROV 4 weeks. (2) Pre-op examination: Code(s): Z01.818 - Encounter for other preprocedural examination (3) Adult failure to thrive: Code(s): R62.7 - Adult failure to thrive (4) Weight loss: Code(s): R63.4 - Abnormal weight loss Orders: Orders Pancreatic Elastase-1 05/15/23 Z01.818 - Encounter for other preprocedural examination EGD/[place] Combo - GI Use Only 05/15/23 R62.7 - Adult failure to thrive, R63.4 - Abnormal weight loss Medications: New megestrol 40 mg PO DAILY 30 tabs 6RF R62.7 - Adult failure to thrive sod sulf-pot chloride-mag sulf 1.479-0.188- 0.225 gram (Sutab) PO PER PKG DIR 24 tabs 0RF R63.4 - Abnormal weight loss Discontinued pantoprazole Discontinued Reason: Patient no longer taking 20 mg PO BID 14 days 28 tabs 0RF Coding Level of Care Code Est Pt Level 4 (27092) Diagnoses Cirrhosis K74.60 Pre-op examination Z01.818 Adult failure to thrive R62.7 Weight loss R63.4
[2023-05-15 10:39] VITALS: BP 143/85; PULSE 51; BMI 20.1
[2023-05-15 11:07] VITALS: BMI 19.0
== END 2023-05-15 11:16 | disposition home or self-care (01) ==
PROVIDERS: PCP Nurse Practitioner; Visit Provider Nurse Practitioner
DX: K74.60 Unspecified cirrhosis of liver (principal); Z01.818 Encounter for other preprocedural examination; R62.7 Adult failure to thrive; R63.4 Abnormal weight loss
CPT/HCPCS: 99214

== ENCOUNTER → 2023-05-15 10:17 | Outpatient (BNVA) | payer MEDICAID, SELFPAY | PROVIDERS: PCP Nurse Practitioner; Visit Provider Nurse Practitioner | DX: R62.7 Adult failure to thrive (principal); R63.4 Abnormal weight loss; K74.60 Unspecified cirrhosis of liver | CPT/HCPCS: 99212 ==

== ENCOUNTER 2023-06-11 06:30 | Outpatient (REF) | payer MEDICAID, SELFPAY ==
[2023-06-20 18:23] LABS: Pancreatic Elastase-1 >500 mcg/g
== END 2023-06-11 06:31 | disposition home or self-care (01) ==
LOC: HO.LNP 06:30
PROVIDERS: Visit Provider Nurse Practitioner
DX: Z01.818 Encounter for other preprocedural examination (principal)
CPT/HCPCS: 82656

== ENCOUNTER 2024-04-16 15:29 | Outpatient (AMB) | payer MEDICAID, SELFPAY ==
--- NOTE | 2024-04-16 15:37 | MHC.OFFVIS ---
Vital Signs 04/16/24 15:41 Weight 120 lb 13.013 oz BP 137/86 Blood Pressure Location Lt brachial Position Sitting Pulse 70 Intake Visit Reasons: Follow up medication Intake Note: Patient in office today in follow up of cirrhosis and weight loss. CC: Patient states that he began to have abdominal bloating once he ran out megestrol. He also reports that he can feel when his body is doing the digestion. 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 He is losing weight down 2 lbs since 2021. He feels like food just sits in his stomach until he lays down then I feel the food go down. He will have bloating. No pain, no N/V. His stools are soft and daily. He finds he HAS to schedule eating or he will not r/t no hunger. He used to like to eat meats but now finds he does not want this. He is taking vitamins and shakes and sweets AND breads, I only want to eat LIGHT. He has tried MJ but this does not stimulate his appetite well. Will try megace, needs pill prep for EGD/colonoscopy. On omeprazole and mirtazepine now. No longer on methadone. ROV 4 weeks. (2) Pre-op examination: Code(s): Z01.818 - Encounter for other preprocedural examination (3) Adult failure to thrive: Code(s): R62.7 - Adult failure to thrive (4) Weight loss: Code(s): R63.4 - Abnormal weight loss Orders: Orders Pancreatic Elastase-1 05/15/23 Z01.818 - Encounter for other preprocedural examination EGD/[place] Combo - GI Use Only 05/15/23 R62.7 - Adult failure to thrive, R63.4 - Abnormal weight loss Medications: New megestrol 40 mg PO DAILY 30 tabs 6RF R62.7 - Adult failure to thrive sod sulf-pot chloride-mag sulf 1.479-0.188- 0.225 gram (Sutab) PO PER PKG DIR 24 tabs 0RF R63.4 - Abnormal weight loss Discontinued pantoprazole Discontinued Reason: Patient no longer taking 20 mg PO BID 14 days 28 tabs 0RF LABS: Laboratory Tests 06/11/23 06:30 Stool Pancreat Elastase >500 EGD/COLONOSCOPY Scheduled for 07/17/2023 BIOPSY TODAYS VISIT Cambodian # Devyn Live Patient has been lost to follow-up since 04/2023 at that time I had wanted him to come back in 4 weeks. It also appears he never had a colonoscopy. It is unclear to me and the patient is not directly answering other he cancel the colonoscopy or just no showed. HE says he was too busy working to go to any of his appointments or have his studies. He is a [facility] patient. I explain that it is not reasonable to be on megace intermediate especially when we have no studies to know what the underlying pathology is. Also, this can effect the adrenal/corticosteroid axis poorly. I am discontinuing this medication in favor or bid omeprazole - since his major complaint is bloating after eating. I will not reschedule any procedures because he can not committ to making the time with his work. ROV 6 mos. 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: left hand Review of Systems Const Denies fatigue, Denies fever(s), Denies night sweats, Reports poor appetite and Denies weight loss ENT Reports Normal hearing present, Denies dental pain, Denies dysphagia, Denies hearing loss, Denies mouth pain, Denies odynophagia, Denies throat swelling, Denies tongue swelling and Reports other (Dentition adequate) Card Reports no additional complaints Resp Reports no additional complaints GI Details: Denies abdominal pain, Denies melena, Denies bloating, Denies hematochezia, Denies constipation, Denies GI cramping, Denies dysphagia, Denies excessive flatus, Denies early satiety, Reports dyspepsia, Denies heartburn, Denies diarrhea, Denies nausea, Denies odynophagia, Denies vomiting and Denies hematemesis Skin/Breast Denies pruritus, Denies lesions, Denies rash and Denies jaundice Neuro Reports Normal hearing present and Denies Abnormal speech present Endo Denies fatigue Aller/Immun Denies throat swelling and Denies tongue swelling Physical Exam Vital Signs: Last Vital Signs Pulse 70 04/16/24 15:41 BP 137/86 04/16/24 15:41 Const General: cooperative, no acute distress, well developed and well groomed Nutritional Appearance: average body habitus and well nourished Orientation/consciousness: oriented to person, oriented to place and oriented to time Limitations: language barrier HEENT Head: Yes normocephalic and Yes atraumatic Eyes General: appearance normal, both eyes and all related structures Pupils: Equal, round and reactive pupils present Neck Neck: Yes normal visual inspection and Yes no lymphadenopathy Thyroid: Thyroid normal Resp Effort & Inspection: normal respiratory effort and able to speak in complete sentences Auscultation: clear to auscultation bilaterally Cardio Rate: regular rate Rhythm: regular rhythm Heart sounds: Normal, physiologic split S2 sound present Peripheral pulses: radial pulses present and posterior tibial pulses present GI Inspection: No distended and No Abdominal panniculus present Palpation (GI): Soft to palpation, nontender, no guarding, not rigid and No hepatosplenomegaly present Percussion: Yes normal to percussion Auscultation: normal bowel sounds Rectal Exam - Male: Yes deferred Skin General skin exam: no rashes or lesions noted, turgor normal, skin not dry, no jaundice, No spider nevi and no striae Rashes: no rashes Nails: normal Neuro General: oriented to person, oriented to place and oriented to time Cranial nerves: Yes Equal, round and reactive pupils present and Yes Normal hearing present Speech: No Abnormal speech present Extrem General: Yes normal to inspection, No clubbing, No cyanosis and No edema Psych Appearance: grossly normal and well kempt Mental Status: mental status grossly normal Speech and movement: Normal speech and movement present Affect: normal affect Attitude: cooperative Thought process: Normal thought process present and not confabulating Thought content: Normal thought content present Insight: Poor insight present (Psych) Judgement: Poor judgement present (Psych) Assessment & Plan Assessment & Plan (1) Dyspepsia: Code(s): R10.13 - Epigastric pain Category: Medical Plan Cambodian # Devyn Live Patient has been lost to follow-up since 04/2023 at that time I had wanted him to come back in 4 weeks. It also appears he never had a colonoscopy. It is unclear to me and the patient is not directly answering other he cancel the colonoscopy or just no showed. HE says he was too busy working to go to any of his appointments or have his studies. He is a [facility] patient. I explain that it is not reasonable to be on megace intermediate especially when we have no studies to know what the underlying pathology is. Also, this can effect the adrenal/corticosteroid axis poorly. I am discontinuing this medication in favor or bid omeprazole - since his major complaint is bloating after eating. I will not reschedule any procedures because he can not committ to making the time with his work. ROV 6 mos. Medications: New omeprazole 20 mg PO BID 60 caps 6RF Discontinued megestrol Discontinued Reason: Doctor's Order 40 mg PO DAILY 30 tabs 6RF R62.7 - Adult failure to thrive On Hold sod picosulf-mag ox-citric ac 10 mg-3.5 gram- 12 gram/175 mL (Clenpiq) Hold Comment: Doctor's Order 175 mL PO DAILY 350 mL 0RF sod sulf-pot chloride-mag sulf 1.479-0.188- 0.225 gram (Sutab) Hold Comment: Doctor's Order PO PER PKG DIR 24 tabs 0RF R63.4 - Abnormal weight loss Coding Level of Care Code Est Pt Level 3 (71468) Diagnoses Dyspepsia R10.13
[2024-04-16 15:41] VITALS: BP 137/86; PULSE 70
== END 2024-04-16 16:03 | disposition home or self-care (01) ==
PROVIDERS: PCP Nurse Practitioner; Visit Provider Nurse Practitioner
DX: R10.13 Epigastric pain (principal)
CPT/HCPCS: 99213

== ENCOUNTER → 2024-04-16 15:29 | Outpatient (BNVA) | payer MEDICAID, SELFPAY | PROVIDERS: PCP Nurse Practitioner; Visit Provider Nurse Practitioner | DX: K74.60 Unspecified cirrhosis of liver (principal); R62.7 Adult failure to thrive; R63.4 Abnormal weight loss; R10.13 Epigastric pain | CPT/HCPCS: 99212 ==

== ENCOUNTER 2024-07-20 17:07 | Emergency (ER) | payer MEDICAID, SELFPAY ==
--- NOTE | ~2024-07-20 | XR_ITS ---
EXAMINATION: XR ankle RT 2V (accession [id number]), XR foot RT 2V (accession [id number]), XR tibia fibula RT 2V (accession [id number]) CLINICAL INFORMATION: pain COMPARISON: None. TECHNIQUE: 2 views of the right tibia/fibula, 2 views of the right ankle, and 2 views of the right foot FINDINGS: * No acute fracture or dislocation. * Joint spaces are maintained. Mild degenerative changes along the dorsal midfoot. * No soft tissue abnormality. XR/XR foot RT 2V IMPRESSION: No acute fracture or dislocation. Mild degenerative changes along the dorsal midfoot. Electronically signed by: Barbara Haas MD 07/20/2024 06:43 PM [facility]
--- NOTE | ~2024-07-20 | XR_ITS ---
EXAMINATION: XR ankle RT 2V (accession [id number]), XR foot RT 2V (accession [id number]), XR tibia fibula RT 2V (accession [id number]) CLINICAL INFORMATION: pain COMPARISON: None. TECHNIQUE: 2 views of the right tibia/fibula, 2 views of the right ankle, and 2 views of the right foot FINDINGS: * No acute fracture or dislocation. * Joint spaces are maintained. Mild degenerative changes along the dorsal midfoot. * No soft tissue abnormality. XR/XR ankle RT 2V IMPRESSION: No acute fracture or dislocation. Mild degenerative changes along the dorsal midfoot. Electronically signed by: Barbara Haas MD 07/20/2024 06:43 PM [facility]
--- NOTE | ~2024-07-20 | XR_ITS ---
EXAMINATION: XR ankle RT 2V (accession [id number]), XR foot RT 2V (accession [id number]), XR tibia fibula RT 2V (accession [id number]) CLINICAL INFORMATION: pain COMPARISON: None. TECHNIQUE: 2 views of the right tibia/fibula, 2 views of the right ankle, and 2 views of the right foot FINDINGS: * No acute fracture or dislocation. * Joint spaces are maintained. Mild degenerative changes along the dorsal midfoot. * No soft tissue abnormality. XR/XR tibia fibula RT 2V IMPRESSION: No acute fracture or dislocation. Mild degenerative changes along the dorsal midfoot. Electronically signed by: Barbara Haas MD 07/20/2024 06:43 PM [facility]
[2024-07-20 17:11] VITALS: BP 135/98; PULSE 73; RESP 20; TEMP 36.9; O2SAT 97; BMI 27.5
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
[2024-07-20] MEDS: Ibuprofen 600 MG TABLET PO (20:11)
[2024-07-20 20:12] VITALS: BP 134/88; PULSE 70; RESP 18; TEMP 36.8; O2SAT 97
[2024-07-20 20:14] VITALS: BP 134/88; PULSE 70; RESP 18; TEMP 36.8; O2SAT 97
== END 2024-07-20 20:15 | disposition home or self-care (01) ==
PROVIDERS: Emergency Provider Emergency Medicine; PCP Student in an Organized Health Care Education/Training Program
DX: S93.401A Sprain of unspecified ligament of right ankle, initial encounter (principal); V43.52XA Car driver injured in collision with other type car in traffic accident, initial encounter; Y93.9 Activity, unspecified; Y92.410 Unspecified street and highway as the place of occurrence of the external cause; Y99.9 Unspecified external cause status; M25.571 Pain in right ankle and joints of right foot
CPT/HCPCS: 73590; 73600; 73620; 99283

== ENCOUNTER 2024-10-31 12:35 | Emergency (ER) | payer MEDICARE, MEDICAID, SELFPAY ==
--- NOTE | ~2024-10-31 | XR_ITS ---
CLINICAL HISTORY: SOB 2 view chest x-ray. Comparison: CT/REG/SR - CT CHEST WO IV CON - 07/09/22 23:04 EDT CR/RI - CHEST 2 VIEWS - 09/06/17 21:22 EST Findings: The lungs are adequately expanded. No focal consolidation. No effusion or pneumothorax. Cardiac and mediastinal contours are within normal limits. No acute osseous abnormality. Old right-sided rib fractures. Impression: No acute process. This document has been electronically signed by: Zain Ibarra MD on 10/31/2024 14:18:10
--- NOTE | 2024-10-31 12:55 | ED.GENADULT ---
HPI - General Adult General Chief complaint: Dyspnea Stated complaint: difficulty breathing Time Seen by Provider: 10/31/24 15:21 History of Present Illness HPI narrative: Patient complains of 2 days of shortness of breath, similar to asthma that he had several years ago and as a child, a cough, nausea, some vomiting yesterday, sore throat, some chest pain with deep breath and feeling heaviness in his chest for 2 days associated with his cough He denies any headache no stiff neck no radiating pain no diaphoresis no exertional symptoms no abdominal pain no dysuria no rash no difficulty swallowing, but mild pain with swallowing Related Data Home Medications ?Medication ?Instructions ?Recorded ?Confirmed budesonide-formoterol HFA 80 2 puff inhalation DAILY 08/16/20 08/16/20 mcg-4.5 mcg/actuation aerosol inhaler (Symbicort) gabapentin 300 mg capsule 300 mg PO TID 08/16/20 07/15/23 lidocaine 5 % topical patch 1 - 2 patch topical DAILY PRN pain 08/24/22 (Lidoderm) amlodipine 10 mg tablet 10 mg PO QAM 05/15/23 07/15/23 atorvastatin 10 mg tablet 10 mg PO DAILY 05/15/23 07/15/23 hydrochlorothiazide 25 mg tablet 25 mg PO DAILY 05/15/23 07/15/23 mirtazapine 7.5 mg tablet 7.5 mg PO BEDTIME 05/15/23 07/15/23 Previous Rx's ?Medication ?Instructions ?Recorded sodium sul 1.479 gram-potas ch See Rx Instructions PO PER PKG DIR 05/15/23 0.188 gram-magnes sul 0.225 gram #24 tabs tablet (Sutab) sod picosulf 10 mg-magnes 3.5 175 ml PO DAILY 2 doses #350 mL 07/03/23 gram-citric 12 gram/175 mL oral solution (Clenpiq) omeprazole 20 mg capsule,delayed 20 mg PO BID #60 caps 04/16/24 release ondansetron 4 mg disintegrating 4 mg PO Q6-8H PRN nausea and 10/31/24 tablet vomiting 5 days #14 tabs prednisone 20 mg tablet 60 mg (3 x 20 mg) PO DAILY 5 days 10/31/24 #15 tabs Allergies Allergy/AdvReac Type Severity Reaction Status Date / Time No Known Allergies Allergy Verified 10/31/24 12:58 [No Known Allergies*] [facility] Past Medical History Medical History Pre-op examination Adult failure to thrive Weight loss H/O fracture of skull Substance abuse Asthma Hepatitis C Chronic back pain Depression Surgical History History of esophagogastroduodenoscopy (EGD) H/O right inguinal hernia repair Family History Family History Mother Stroke Heart problem Father Stroke Heart problem Social History Social History Household Members: Friend(s) Alcohol intake: current Alcohol intake frequency: holidays/special occasions only Cigarettes Per Day: 5.0 Advance Directives: No Advance Directives Information Provided: Yes Current occupational status: disabled Current occupation: left hand Physical Exam ED Vital Signs: Vital Signs - 24 hr 10/31/24 12:56 10/31/24 15:15 10/31/24 16:07 Temperature 98.0 F 98.5 F Pulse Rate 69 65 64 Respiratory Rate 18 20 16 Blood Pressure 128/92 H 142/88 H Pulse Oximetry 92 95 Oxygen Delivery Method Room Air Room Air BMI result Body Mass Index 19.5 General appearance is no distress no respiratory distress, speaking full sentences The eyes no redness or discharge The pharynx is clear without redness swelling or exudate membranes are moist Neck is supple The chest had slightly diminished breath sounds with scattered faint wheezes, at this time no pain with a deep breath Heart no murmur auscultated Abdomen soft nontender Extremities full range of motion x4, no calf tenderness or swelling, no leg swelling no edema Skin no rash Neuro no focal deficits, gait balance are normal, interaction comprehension and expression are all normal Course Course Course Narrative: RME performed by Scarlett Soto PA-C. Patient is a 64 year old assigned male at presenting to the emergency department with a cough and difficulty breathing. Detailed physical exam and review of systems are deferred to the eye surgeon. EKG, labs, imaging, and swabs ordered. Patient placed back in the waiting room pending room availability and results. Labs chest x-ray and EKG were ordered X-ray of the chest was negative no acute process EKG was normal sinus rhythm without acute ST or ischemic changes Patient was positive for influenza but symptoms have been present for over 48 hours so Tamiflu was not offered A CBC was checked, white count was normal, platelets normal, hemoglobin hematocrit normal Troponin was checked and was 5.3, symptoms have been present for 2 days and were atypical and likely related to his influenza and cough and asthma, no other significant acute abnormality on chemistry, AST of 80 and total protein 8.6 are noted and he will be advised to get a repeat liver test with his doctor Patient responded very well to asthma treatment and his shortness of breath was relieved, he responded well to Zofran and was tolerating p.o. and patient is discharged O2 sat was 96, respiratory rate was 16 and he felt very improved Case was discussed and reviewed with Dr. mccray Medications Administered Discontinued Medications Generic Name Dose Route Start Last Admin Trade Name Freq PRN Reason Stop Dose Admin Albuterol/Ipratropium 3 ml 10/31/24 15:47 10/31/24 16:05 Albuterol/Iprat 2.5/0.5mg 3 Ml Ampul.Neb INHALE 10/31/24 15:48 3 ml ONCE ONE Administration Albuterol/Ipratropium 3 ml 10/31/24 16:31 10/31/24 17:16 Albuterol/Iprat 2.5/0.5mg 3 Ml Ampul.Neb INHALE 10/31/24 16:32 3 ml ONCE ONE Administration Ondansetron HCl 4 mg 10/31/24 15:53 10/31/24 17:02 Ondansetron Odt 4 Mg Tab.Rapdis TRANSLINGU 10/31/24 15:54 4 mg ONCE ONE Administration Medical Decision Making Lab Data [facility] Lab Attestation statement: I reviewed the patient's lab results. 10/31/24 13:27 10/31/24 13:27 Labs: Lab Results 10/31/24 10/31/24 10/31/24 Range/Units 13:11 13:27 16:00 WBC 9.7 (4.8-10.8) X10*3/uL RBC 4.73 (4.60-5.80) X10*6/uL Hgb 14.6 (14.0-18.0) g/dl Hct 42.8 (42.0-52.0) % MCV 90.5 (80.0-98.0) fL MCH 30.9 (27.0-33.0) pg MCHC 34.1 (31.0-36.0) g/dl RDW 14.6 (11.0-16.0) % Plt Count 224 D (160-400) X10*3/uL MPV 9.3 L (9.4-12.4) fL Immature Gran % (Auto) 0.3 (0.0-0.4) % Neut % (Auto) 80.8 H (45-73) % Lymph % (Auto) 5.9 L (20-40) % [place] % (Auto) 12.6 H (2-11) % Eos % (Auto) 0.1 (0-4) % Baso % (Auto) 0.3 (0-2) % Lymph # (Auto) 0.6 L (1.2-4.9) X10*3/uL [place] # (Auto) 1.2 (0.1-1.2) X10*3/uL Eos # (Auto) 0.0 (0.0-0.4) X10*3/uL Baso # (Auto) 0.0 (0.0-0.2) X10*3/uL Abs Immat Gran (auto) 0.03 (0.00-0.03) X10*3/uL Absolute Neuts (auto) 7.8 (2.0-8.3) x10*3/uL Absolute Nucleated RBC 0.000 (0.0-0.012) X10*3/uL Nucleated RBC % (auto) 0.0 (0.0-0.2) /100WBC PT 13.0 H (10.9-12.4) SEC INR 1.1 (0.9-1.1) Sodium 137 (135-145) mmol/L Potassium 4.9 (3.3-5.1) mmol/L Chloride 100 (96-108) mmol/L Carbon Dioxide 26 (22-29) mmol/L Anion Gap 16 (12-20) BUN 15 (9-16) mg/dL Creatinine 1.10 (0.5-1.4) mg/dL Estim Creat Clear Calc 48.7 Estimated GFR > 60 Random Glucose 117 H (60-115) mg/dL Calcium 9.8 D (8.4-10.2) mg/dL Magnesium 2.0 (1.6-2.6) mg/dL Total Bilirubin 0.3 (0.0-1.0) mg/dL AST 80 H (5-37) U/L ALT 30 (0-40) U/L Alkaline Phosphatase 81 (39-117) U/L Troponin I High Sens 4.7 5.3 (<3.5-35.0) ng/L Total Protein 8.6 H (6.5-8.0) g/dL Albumin 4.8 (3.5-5.0) g/dL Influenza Type A (PCR) POSITIVE A (Negative) Influenza Type B (PCR) NEGATIVE (Negative) RSV RNA Qual (PCR) NEGATIVE (Negative) SARS-CoV-2 RNA (RT-PCR) NEGATIVE (Negative) Discharge Plan Discharge Clinical Impression: Asthma, Influenza Patient Disposition: Home, Self-Care Additional Instructions: Testing showed that you have had influenza the past 2 days, but the medication for flu is not recommended after 48 hours On exam he were wheezing and improved with albuterol treatment so we started prednisone and I wrote you for inhaler to use at home The nausea pill should help you to be able to hydrate and eat light food Return to the ER any time for difficulty breathing chest pain uncontrolled vomiting dehydration any worse condition or any concerns Prescriptions: New prednisone 20 mg tablet 60 mg PO DAILY 5 Days Qty: 15 0RF ondansetron 4 mg tablet,disintegrating 4 mg PO Q6-8H PRN (Reason: nausea and vomiting) 5 Days Qty: 14 0RF No Action Clenpiq 10 mg-3.5 gram- 12 gram/175 mL solution 175 ml PO DAILY Qty: 350 0RF Rx Instructions: drink first bottle/dose at 5PM evening before colonoscopy; follow with at least 5cups of clear liquid over 5hours. 2nd dose/bottle the next day approximately 6-8 hrs before colonoscopy with at least 4 cups of clear liquids. You must finish drinking clear liquid 4 hours before your colonoscopy. gabapentin 300 mg Capsule 300 mg PO TID budesonide-formoterol [Symbicort] 80-4.5 mcg/actuation Hfa Aerosol Inhaler 2 puff INHALATION DAILY lidocaine [Lidoderm] 5 % adhesive patch,medicated 1 - 2 patch topical DAILY PRN (Reason: pain) omeprazole 20 mg capsule,delayed release(DR/EC) 20 mg PO BID Qty: 60 6RF mirtazapine 7.5 mg tablet 7.5 mg PO BEDTIME atorvastatin 10 mg tablet 10 mg PO DAILY amlodipine 10 mg tablet 10 mg PO QAM hydrochlorothiazide 25 mg tablet 25 mg PO DAILY Sutab 1.479-0.188- 0.225 gram tablet See Rx Instructions PO PER PKG DIR Qty: 24 0RF Rx Instructions: PO PER PKG DIR Print Language: Slovenian
[2024-10-31 12:56] VITALS: BP 128/92; PULSE 69; RESP 18; TEMP 36.7; O2SAT 92; BMI 19.5
--- NOTE | 2024-10-31 12:57 | ECG_ITS ---
Test Reason : CHEST PAIN Blood Pressure : */* mmHG Vent. Rate : 66 BPM Atrial Rate : 66 BPM P-R Int : 144 ms QRS Dur : 74 ms QT Int : 354 ms P-R-T Axes : * 51 17 degrees QTcB Int : 371 ms Normal sinus rhythm Septal infarct , age undetermined Abnormal ECG When compared with ECG of 10-Jul-2022 00:22, No significant change was found Referred By: Scarlett Soto Electronically Signed By: ARTURO ROSAS MD
[2024-10-31 13:31] LABS: MANUAL DIFF FLAG NO
[2024-10-31 13:32] LABS: Basophils Percent Auto 0.3 % (0-2); Eosinophils Percent Auto 0.1 % (0-4); Hematocrit 42.8 % (42.0-52.0); Hemoglobin 14.6 g/dl (14.0-18.0); Imm Gran Abs Auto 0.03 X10*3/uL (0.00-0.03); Imm Gran Pct Auto 0.3 % (0.0-0.4); Lymphocytes Absolute Auto 0.6 X10*3/uL (1.2-4.9); Lymphocytes Percent Auto 5.9 % (20-40); Mean Corpuscular HGB Conc 34.1 g/dl (31.0-36.0); Mean Corpuscular Hemoglobin 30.9 pg (27.0-33.0); Mean Corpuscular Volume 90.5 fL (80.0-98.0); Mean Platelet Volume 9.3 fL (9.4-12.4); Monocytes Absolute Auto 1.2 X10*3/uL (0.1-1.2); Monocytes Percent Auto 12.6 % (2-11); Neutrophils Absolute Auto 7.8 x10*3/uL (2.0-8.3); Neutrophils Percent Auto 80.8 % (45-73); Platelet Count 224 X10*3/uL (160-400); Red Blood Count 4.73 X10*6/uL (4.60-5.80); Red Cell Distribution Width 14.6 % (11.0-16.0); White Blood Count 9.7 X10*3/uL (4.8-10.8)
[2024-10-31 13:53] LABS: Influenza A PCR POSITIVE (Negative); Influenza B PCR NEGATIVE (Negative); Resp Syncy Virus RNA Qual PCR NEGATIVE (Negative); SARS COV2 PCR INHOUSE NEGATIVE (Negative)
[2024-10-31 13:54] LABS: Alanine Aminotransferase 30 U/L (0-40); Albumin Level 4.8 g/dL (3.5-5.0); Anion Gap 16 (12-20); Aspartate Amino Transferase 80 U/L (5-37); Bilirubin Total 0.3 mg/dL (0.0-1.0); Blood Urea Nitrogen 15 mg/dL (9-16); Calcium 9.8 mg/dL (8.4-10.2); Carbon Dioxide 26 mmol/L (22-29); Chloride 100 mmol/L (96-108); Creatinine Clr Calc Pharmacy 48.7; Estimated Glomerular Filt Rate > 60; Glucose Random 117 mg/dL (60-115); Potassium 4.9 mmol/L (3.3-5.1); Sodium 137 mmol/L (135-145); Total Protein 8.6 g/dL (6.5-8.0)
[2024-10-31 13:56] LABS: Troponin-I High Sensitivity 4.7 ng/L (<3.5-35.0)
[2024-10-31 14:06] LABS: Alkaline Phosphatase 81 U/L (39-117)
--- OUTSIDE RECORDS SUMMARY | 2024-10-31 15:14 | XMS_ITS | Encounter Summary ---
Author Organization [facility] Address [address] [place] [address] [place] [address] Care Team Providers Care Agricultural Extension Agent Name Role Phone Tere Roca Primary Care Provider [phone] Lori Hernandez MD Primary Care Pro vider Kelsie Basurto PharmD Unavailable [phone] Reason for Visit * Reason Onset Date Comments [facility] 09/06/2022 I called to info rm the pt that he needs to schedule a TP appt with ANKIT Cosme, so that a [facility] PCP order form from [facility] could be completed. There was no answer and no voicemail, therefore, I was unable to leave a msg. Encounter Details Date Type Department Care Team (Late st Contact Info) Description 09/06/2022 Telephone [facility] [address] [place] [id number] Tere Roca FNP [address] [place] [address] Dept [place] [address] [facility] (I called to inform the pt that he needs to schedule a TP appt with ANKIT Cosme, so that a [facility] PCP order form from [facility] could be completed. There was no answer and no voicemail, therefore, I was unable to leave a msg.) Social History Tobacco Use Types Packs/Day Years Used Date Smoking Tobacco: Never Assessed Sex and Gender Information Value Date Recorded Sex Assigned at Male 07/16/2022 10:17 AM EDT Legal Sex Male 10:17 AM EDT Gender Identity Male 07/16/2022 10:17 AM EDT Sexual Orientation Straight 07/09/2024 10 :52 AM EDT documented as of this encounter Plan of Treatment Not on file documented as of this encounter Visit Diagnoses Not on filedocumented in this encounter Care Teams Agricultural Extension Agent Relationship Specialty Start Date End Date Tere Roca FNP PCP - General Family Medicine 05/09/22 06/19/23 Lori Hernandez MD [address] [place] [address] [phone] PCP - General Internal Medicine 06/20/23 Kelsie Basurto PharmD [address] [place] [address] [phone] Pharmacist Internal Medicine 08/28/24 documented as of this encounter
--- OUTSIDE RECORDS SUMMARY | 2024-10-31 15:14 | XMS_ITS | Clinical Summary ---
Author Organization [employer] Address [address] [facility] [address] [place] [address] Care Team Providers Care Electro Mechanic Name Role Phone Lori Hernandez MD Primary Care Pro vider Kelsie Basurto PharmD Unavailable [phone] Allergies No known active allergies Medications omeprazole (PriLOSEC) [address] capsule Take 1 capsule by mouth every 12 (twelve) hours. take 1 capsule by oral route 2 times every day before a meal Active Blood Pressure Monitoring (Omron 3 Series BP Monitor) device USE EVERY DAY TO CHECK BLOOD PRESSURE Active lidocaine (Lidoderm) 5 % patchIndications: Chronic bilateral low back pain with right-sided sciatica Apply 1 patch topically in the morning. Appy 1-2 patches by topical route every day ( may wear 12 hours ) prn pain 30 patch 1 023 Active atorvastatin (Lipitor) 10 MG tabletIndications :Mixed hyperlipidemia TAKE 1 TABLET BY MOUTH EVERY DAY 90 tablet 1 024 Active salicylic acid-lactic acid (Compound W) 17 % external solution Apply topically Once per day. 10 mL 1 024 Active Diclofenac Sodium 1 % gel Apply 1 Application topically if needed each day (right ankle pain). 50 g 024 Active amLODIPine (Norvasc) 10 MG tabletIndications :Primary hypertension TAKE 1 TABLET BY MOUTH EVERY DAY IN THE MORNING 90 tablet 1 024 Active megestrol (Megace) 40 MG tablet Take 40 mg by mouth Once per day. 024 Active nicotine (Nicoderm CQ) 21 MG/24HR patchIndications: Heavy tobacco smoker Place 1 patch on the skin 1 (one) time each day at the same time. 42 patch 024 Active nicotine (Nicoderm CQ) 14 MG/24HR patchIndications: Heavy tobacco smoker Place 1 patch on the skin 1 (one) time each day at the same time. 14 patch 024 Active nicotine (Nicoderm CQ) 7 MG/24HR patchIndications: Heavy tobacco smoker Place 1 patch on the skin 1 (one) time each day at the same time. 14 patch 024 Active mirtazapine (Remeron) 7.5 MG tabletIndications :Depression, unspecified depression type TAKE 1 TABLET BY MOUTH AT BEDTIME. 90 tablet 025 Active mirtazapine (Remeron) 7.5 MG tabletIndications :Depression, unspecified depression type Take 1 tablet (7.5 mg) by mouth at bedtime. 90 tablet 024 2024 Discontinued Active Problems Problem Noted Date Diagnosed Date Insomnia 07/10/2024 Foot lesion 07/10/2024 History of Helicobacter pylori infection 023 Overview (06/19/2023): Last [facility] GI appt 04/25/21 Discovered 08/2020 EGD 02/2021 confirmed eradicated by stool antigen Health care maintenance 10/05/2022 Overview (04/27/2023): Routine Health Maintenance: Immunizations: Due shingles vaccine, pt declines today HIV: Nonreactive 08/25/2019 Hep C: reactive; Viral load not detected on 10/05/22 Hepatitis B: Reactive surface antibodies 08/25/2019 BMD: >age 65. Discuss next visit d/t smoking hx AAA: discuss screening at next visit Colonoscopy: Per [facility] age 45-75 average risk regular screening with annual fecal test, stool DNA test every 3 years, or visual exam (colonoscopy every 10 [address], [address] colonography every 5 years). Continue screening >age 75 if in good health and life expectancy > 10 years. PSA wnl 10/18/2017 EGD: 2010 showed small esophageal varices. Recommended repeat in 1 year. Unknown if done. Lung cancer: current smoker, 25 pack year history. Does not meet [facility] screening guidelines. Last Eye visit: Wears reading glasses. No concerns. Last Dental Visit: 8 months ago. [facility] [place] Benign hypertension 08/20/2022 Overview (04/27/2023): HTN controlled Treating amlodipine 10 mg daily Needs Med rec Assessment & Plan (04/27/2023 11:28 PM EDT): Continue amlodipine 10 mg Schedule RN visit for med rec F/u prn Bilateral cataracts 08/20/2022 Chronic obstructive lung disease 08/20/2022 Hyperlipidemia 08/20/2022 Overview (04/27/2023): Last lipid panel 04/24/2021 Treating atorvastatin 10 mg daily Low fat diet Assessment & Plan (04/27/2023 11:26 PM EDT): Continue diet and Rosuvastatin Order lipid panel again F/u PRN Heavy tobacco smoker 08/20/2022 History of hepatitis C 08/20/2022 Overview (04/27/2023): Hep C reactive: Viral load not detected on 10/05/22. Pt unaware of results. No further treatment needed Assessment & Plan (04/27/2023 11:15 PM EDT): No f/u needed F/u PRN Cirrhosis of liver 04/27/2020 Overview (04/27/2023): Care managed by GI No recent appt Assessment & Plan (04/27/2023 11:25 PM EDT): Will check on Pt GI appt and confirm when his f/u should be Concern for pt liver Order labs May be due for colonoscopy F/u 3 months or sooner PRN with new PCP Encounters Date Type Department Care Team Description 10/04/2024 Refill [facility] MEDICINE [address] [place] [address] Lori Hernandez MD Depression, unspecified depression type 08/28/2024 Travel 08/20/2024 Refill [facility] & PEDS [address] [place], [place] [id number] Lori Hernandez MD Primary hypertension 08/05/2024 10:15 AM EST Office Visit [facility] [address] [facility] [place] [address] Lori Hernandez MD Chronic obstructive pulmonary disease, unspecified COPD type (CMS/HCC) (Primary Dx); Heavy tobacco smoker; Encounter for immunization; Benign hypertension; Health care maintenance; Foot lesion 08/05/2024 Telephone [facility] [address] [facility] [place] [address] Lori Hernandez MD 08/05/2024 Travel from Last 3 Months Immunizations Name Administration Dates Next Due Hep A, Adult 09/16/2003 Hep B, adult 09/16/2003 Influenza injectable quadriv alent IIV4 with preservative 06/18/2016,07/22/2015 Influenza injectable quadriv alent preservative free 10/05/2022,06/06/2021,05/31/2020,10/16,06/06/2017 Influenza, IIV3, injectable 07/12/2011 Influenza, Injectable, MDCK, preservative free 05/11/2024 [facility] SARS-CoV-2 Vaccination 12/21/2020 Pfizer Covid-19 Vaccine 12+ 04/17/2022, 1 Pneumococcal Conjugate PCV 20 07/09/2024 Pneumococcal Polysaccharide PPSV23 10/16/2019 RSV Bivalent 01/13/2024 TD (adult), 2 Lf tetanus tox oid, preservative free, adsorbed 08/24/2004 Td (adult), unspecified 07/18/2022 Social History Tobacco Use Types Packs/Day Years Used Date Smoking Tobacco: Every Day Cigarettes 0.5 50 Smokeless Tobacco: Never Comments:Smokes tobacco sinc e 12 y until now ,stopped for 9 years,smoking aprox so far for 42 y , smokes 10 cig a day in average 15 cig a day -max 1 PQT a day ---PQT calc 31.5 Alcohol Use Standard Drinks/Week Comments Not Currently 0 (1 standard drink = 0.6 oz pur e alcohol) Depression Answer Date Recorded Patient Health Questionnaire-9 Score 3 07/09/2024 Patient Health Questionnaire-9 Score 3 07/09/2024 Last PHQ-9: Questionnaire Data Not on file 1 Housing Stability Answer Date Recorded What is your housing situation today? I have nathaly cortés 06/26/[address] you li ve. Do you have problems with any of the following? None of the above 06/26/2024 Food Insecurity Answer Date Recorded Within the past 12 months, y ou worried that your food would run out before you got money to buy more: Never True 07/09/2024 Within the past 12 months,th e food you bought just didn't last and you didn't have enough money to get more: Never True Transportation Answer Date Recorded In the past 12 months, has l ack of transportation kept you from medical appts, meetings, work or from getting things needed for daily living? No 06/26/2024 Utilities Answer Date Recorded In the past 12 months, has t he electric, gas, oil or water company threatened to shut off services in your home? No 06/26/2024 Depression Answer Date Recorded Patient Health Questionnaire-2 Score 1 07/09/2024 Internet Access Answer Date Recorded Internet Access Q1 I am not sure 07/09/2024 Internet Access Q2 I do not want or need it 06/17 Sex and Gender Information Value Date Recorded Sex Assigned at Male 07/16/2022 10:17 AM EDT Legal Sex Male 10:17 AM EDT Gender Identity Male 07/16/2022 10:17 AM EDT Sexual Orientation Straight 07/09/2024 10 :52 AM EDT Last Filed Vital Signs Vital Sign Reading Time Taken Comments Blood Pressure 136/83 08/05/2024 10:04 AM EST Pulse 69 08/05/2024 10:04 AM EST Temperature 36.4 ??C (97.5 ??F) 08/05/2024 10:[address] Respiratory Rate 18 08/05/2024 10:04 AM EST Oxygen Saturation 97% 08/05/2024 10:04 AM EST Inhaled Oxygen Concentration - - Weight 52.6 kg (116 lb) 08/05/2024 10:04 AM EST Height 165.1 cm (5' 5 ) 08/05/2024 10:04 AM EST Body Mass Index 19.3 08/05/2024 10:04 AM EST Plan of Treatment Health Maintenance Due Date Last Done Comments CT Colonography 1959 Colonoscopy 1959 Colorectal Cancer Screening 1959 FIT DNA/Cologuard 1959 FIT 1959 FOBT 1959 Sigmoidoscopy 1959 Hepatitis B Vaccines (2 of 3 - Risk 3-dose series) 10/14/2003 09/16/2003 Hepatitis A Vaccines (2 of 2 - Risk 2-dose series) 03/16/2004 09/16/2003 Lung Cancer Screening 2009 Zoster Vaccines (1 of 2) 2009 DTaP/Tdap/Td Vaccines (1 - Tdap) 07/19/2022 07/18/2022, 08/24/2004 COVID-19 Vaccine (4 - season) 2024 04/17/2022, 07/26/2021, 12/21/2020 Depression Screening 07/09/2025 07/09/2024, 07/09/20 SDOH Screening 07/09/2025 07/09/2024 Tobacco Screening 07/09/2025 07/09/2024 Alcohol/Substance Use Screening 08/05/2025 08/05/2024 Lipid Panel 04/11/2028 04/11/2023, 04/24/2021 RSV Patients and Patients Aged 60 years or older Completed 01/13/2024 Influenza Vaccine Completed 05/11/2024, , 06/06/2021, Additional history exists Pneumococcal Vaccine: 50+ Years Completed 07/09/2024, 10/16/2019 HIB Vaccines Aged Out No longer eligi ble based on patient's age to complete this topic HPV Vaccines Aged Out No longer eligi ble based on patient's age to complete this topic IPV Vaccines Aged Out No longer eligi ble based on patient's age to complete this topic Meningococcal Vaccine Aged Out No edgar anny eligible based on patient's age to complete this topic RSV under 20 months Aged Out No longe r eligible based on patient's age to complete this topic Rotavirus Vaccines Aged Out No longer eligible based on patient's age to complete this topic Procedures Procedure Name Priority Date/Time Associated Diagnosis Comments LIPID PANEL, STANDARD Routine 04/11/2023 10:58 AM EDT Mixed hyperlipidemia from Last 3 Months or Most Recently Relevant to Health Maintenance Results * Lipid Panel, Standard (04/11/2023 10:58 AM EDT) Triglycerides 149 mg/dL [facility] Comment:Desirable Triglyceri de: less than 150 mg/dLBorderline High Triglyceride 150-199 mg/dLHigh Triglyceride: 200-499 mg/dLVery High Triglyceride: greater than or equal to 5OO mg/dL Cholesterol 126 mg/dL [facility] Comment:Desirable Cholestero l: less than 200 mg/dLBorderline High Cholesterol: 200-239 mg/dLHigh Cholesterol: greater than 239 mg/dL LDL Cholesterol Calculated 59 mg/dl [facility] Comment:Desirable LDL: less than 100 mg/dLNear Optimal/Above Optimal LDL: 110- 129 mg/dLBorderline High LDL: 130-159 mg/dLHigh LDL: 160-189 mg/dLVery High LDL: greater than or equal to 190 mg/dL HDL Cholesterol 38 mg/dL [facility] Comment:Desirable HDL: great er than 40 mg/dL Note: This HDL assay may give artificially low results in patients with liver disease. Blood Venous blood specimen / Unknown 04/11/2023 10:58 AM EDT 04/11/2023 1:29 PM EDT Tere Roca CONTENT MANAGER LAB BLOOD ORDERABLES Final Result [facility] [address] [place] [address] [phone] from Last 3 Months or Most Recently Relevant to Health Maintenance Insurance [facility] C3 Care Teams Electro Mechanic Relationship Specialty Start Date End Date Lori Hernandez MD [address] [place] [address] PCP - General Internal Medicine 06/20/23 Kelsie Basurto PharmD [address] [place] [address] Pharmacist Internal Medicine 08/28/24
--- OUTSIDE RECORDS SUMMARY | 2024-10-31 15:14 | XMS_ITS | Encounter Summary ---
Author Organization [employer] Address [address] [facility] [address] [place] [address] Care Team Providers Care Figurine Maker Name Role Phone Lori Hernandez MD Primary Care Pro vider Kelsie Basurto PharmD Unavailable Reason for Visit * Reason Comments Med Refill Encounter Details Date Type Department Care Team ([facility] st Contact Info) Description 10/04/2024 Refill [facility] MEDICINE [address] [place] [address] Lori Hernandez MD [address] [place] [address] Depression, unspecified depression type Social History Tobacco Use Types Packs/Day Years [...] documented as of this encounter Visit Diagnoses Diagnosis Depression, unspecified depression type documented in this encounter Additional Health Concerns Assessment Noted Time PHQ-9 Depression Total Score: 3 07/09/20 10:13 AM EDT documented as of this encounter Care Teams Figurine Maker Relationship Specialty Start Date End Date Lori Hernandez MD [address] [place] [address] PCP - General Internal Medicine 06/20/23 Kelsie Basurto PharmD [address] [place] [address] Pharmacist Internal Medicine 08/28/24 documented as of this encounter
[2024-10-31 15:15] VITALS: BP 142/88; PULSE 65; RESP 20; TEMP 36.9; O2SAT 95
[2024-10-31] MEDS: Albuterol/Iprat 2.5/0.5MG 3 ML AMPUL.NEB INHALE ×2 (16:05→17:16)
[2024-10-31 16:07] VITALS: PULSE 64; RESP 16; O2SAT 96
[2024-10-31 16:10] LABS: INTERNATIONAL NORM RATIO 1.1 (0.9-1.1)
[2024-10-31 16:25] LABS: Troponin-I High Sensitivity 5.3 ng/L (<3.5-35.0)
[2024-10-31] MEDS: Ondansetron ODT 4 MG TAB.RAPDIS TRANSLINGU (17:02)
[2024-10-31 18:53] VITALS: BP 148/83; PULSE 89; RESP 18; TEMP 37.2; O2SAT 94
[2024-10-31] MEDS: predniSONE 20 MG TABLET 60 MG PO (18:53)
[2024-10-31 18:55] VITALS: BP 148/83; PULSE 89; RESP 18; TEMP 37.2; O2SAT 94
== END 2024-10-31 18:55 | disposition home or self-care (01) ==
PROVIDERS: Physician Assistant Medical; Emergency Provider Emergency Medicine Emergency Medical Services
DX: J10.1 Influenza due to other identified influenza virus with other respiratory manifestations (principal); R05.9 Cough, unspecified; R06.02 Shortness of breath; R11.2 Nausea with vomiting, unspecified; J45.909 Unspecified asthma, uncomplicated; R07.89 Other chest pain; Z03.818 Encounter for observation for suspected exposure to other biological agents ruled out; Z79.899 Other long term (current) drug therapy
CPT/HCPCS: 0241U; 36415; 71046; 80053; 83735; 84484; 85025; 85610; 93005; 94640; 99284

== ENCOUNTER → 2024-10-31 12:57 | Outpatient (BNV) | payer MEDICAID, SELFPAY | PROVIDERS: Visit Provider Radiology Vascular & Interventional Radiology | DX: R06.02 Shortness of breath (principal) | CPT/HCPCS: 71046 ==

== ENCOUNTER → 2024-10-31 12:57 | Outpatient (BNV) | payer MEDICARE, MEDICAID, SELFPAY | PROVIDERS: Emergency Provider Emergency Medicine Emergency Medical Services; Visit Provider Internal Medicine Cardiovascular Disease | DX: R94.31 Abnormal electrocardiogram [ECG] [EKG] (principal); R07.9 Chest pain, unspecified | CPT/HCPCS: 93010 ==

== ENCOUNTER 2024-11-04 12:24 | Emergency (ER) | payer MEDICARE, MEDICAID, SELFPAY ==
--- NOTE | ~2024-11-04 | XR_ITS ---
EXAMINATION: XR CHEST CLINICAL INFORMATION: chest pain sob COMPARISON: 10/31/2024 TECHNIQUE: 2 views of the chest were obtained. FINDINGS: The cardiac, hilar, and mediastinal contours are normal. The lungs are diffusely hyperaerated, clear bilaterally. There are a few scattered calcified granulomata. There is no pneumothorax or pleural effusion. There is no suspicious focal osseous or soft tissue abnormality. Old right rib fractures incidentally noted. XR/XR chest 2V IMPRESSION: COPD. No active superimposed disease. Electronically signed by: Jude Ybarra MD 11/04/2024 01:19 PM [facility]
[2024-11-04 12:35] VITALS: BP 136/88; PULSE 84; RESP 20; TEMP 36.6; O2SAT 92; BMI 19.2
--- NOTE | 2024-11-04 12:40 | ECG_ITS ---
Test Reason : chest pain Blood Pressure : */* mmHG Vent. Rate : 82 BPM Atrial Rate : 82 BPM P-R Int : 132 ms QRS Dur : 74 ms QT Int : 330 ms P-R-T Axes : * 44 18 degrees QTcB Int : 385 ms Normal sinus rhythm Normal ECG When compared with ECG of 31-Oct-2024 13:04, No significant change was found Referred By: Generic ED Physician Electronically Signed By: FABIOLA FIELDS
[2024-11-04 13:02] LABS: Basophils Percent Auto 0.1 % (0-2); Eosinophils Percent Auto 0.1 % (0-4); Hematocrit 44.6 % (42.0-52.0); Hemoglobin 15.1 g/dl (14.0-18.0); Imm Gran Abs Auto 0.07 X10*3/uL (0.00-0.03); Imm Gran Pct Auto 0.4 % (0.0-0.4); Lymphocytes Absolute Auto 0.3 X10*3/uL (1.2-4.9); MANUAL DIFF FLAG SCAN; Mean Corpuscular HGB Conc 33.9 g/dl (31.0-36.0); Mean Corpuscular Hemoglobin 30.6 pg (27.0-33.0); Mean Corpuscular Volume 90.5 fL (80.0-98.0); Mean Platelet Volume 9.7 fL (9.4-12.4); Monocytes Absolute Auto 0.7 X10*3/uL (0.1-1.2); Monocytes Percent Auto 3.9 % (2-11); Neutrophils Absolute Auto 15.7 x10*3/uL (2.0-8.3); Neutrophils Percent Auto 93.5 % (45-73); Platelet Count 279 X10*3/uL (160-400); Red Blood Count 4.93 X10*6/uL (4.60-5.80); Red Cell Distribution Width 15.1 % (11.0-16.0); SCAN SMEAR FLAG 1; White Blood Count 16.8 X10*3/uL (4.8-10.8)
[2024-11-04 13:12] LABS: Prothrombin Time 11.3 SEC (10.9-12.4)
[2024-11-04 13:24] LABS: SLIDE REVIEW VERIFIED
[2024-11-04 13:40] LABS: Influenza A PCR POSITIVE (Negative); Influenza B PCR NEGATIVE (Negative); Resp Syncy Virus RNA Qual PCR NEGATIVE (Negative); SARS COV2 PCR INHOUSE NEGATIVE (Negative)
[2024-11-04 14:02] LABS: Alanine Aminotransferase 57 U/L (0-40); Albumin Level 4.6 g/dL (3.5-5.0); Alkaline Phosphatase 79 U/L (39-117); Anion Gap 15 (12-20); Aspartate Amino Transferase 52 U/L (5-37); Bilirubin Total 0.2 mg/dL (0.0-1.0); Blood Urea Nitrogen 20 mg/dL (9-16); Calcium 9.1 mg/dL (8.4-10.2); Carbon Dioxide 27 mmol/L (22-29); Chloride 101 mmol/L (96-108); Creatinine Clr Calc Pharmacy 52.2; Estimated Glomerular Filt Rate > 60; Glucose Random 126 mg/dL (60-115); Magnesium 2.3 mg/dL (1.6-2.6); Potassium 4.9 mmol/L (3.3-5.1); Sodium 138 mmol/L (135-145); Total Protein 8.3 g/dL (6.5-8.0)
[2024-11-04 16:39] LABS: Troponin-I High Sensitivity 2.8 ng/L (<3.5-35.0)
--- NOTE | 2024-11-04 17:16 | ED.SOB ---
HPI - SOB/Dyspnea General Chief Complaint: Dyspnea Stated Complaint: Trouble Breathing Time Seen by Provider: 11/04/24 17:03 Source: patient Mode of arrival: ambulatory Limitations: no limitations History of Present Illness ED Provider: Dr. Cheryl Awad HPI Narrative: Patient comes to the emergency room complaining of shortness of breath, wheezing. Patient was seen here 4 days ago for asthma exacerbation. Patient was sent home with prednisone. Patient states that over last few days, he has noted that he is using his inhaler more frequent than usual and he is running out of his albuterol. Patient denies fever or chills. Patient states that at night, he gets more asthma exacerbations because it is cold . Patient states that he does have he had at home. Related Data Home Medications ?Medication ?Instructions ?Recorded ?Confirmed budesonide-formoterol HFA 80 2 puff inhalation DAILY 08/16/20 08/16/20 mcg-4.5 mcg/actuation aerosol inhaler (Symbicort) gabapentin 300 mg capsule 300 mg PO TID 08/16/20 07/15/23 lidocaine 5 % topical patch 1 - 2 patch topical DAILY PRN pain 08/24/22 (Lidoderm) amlodipine 10 mg tablet 10 mg PO QAM 05/15/23 07/15/23 atorvastatin 10 mg tablet 10 mg PO DAILY 05/15/23 07/15/23 hydrochlorothiazide 25 mg tablet 25 mg PO DAILY 05/15/23 07/15/23 mirtazapine 7.5 mg tablet 7.5 mg PO BEDTIME 05/15/23 07/15/23 Previous Rx's ?Medication ?Instructions ?Recorded sodium sul 1.479 gram-potas ch See Rx Instructions PO PER PKG DIR 05/15/23 0.188 gram-magnes sul 0.225 gram #24 tabs tablet (Sutab) sod picosulf 10 mg-magnes 3.5 175 ml PO DAILY 2 doses #350 mL 07/03/23 gram-citric 12 gram/175 mL oral solution (Clenpiq) albuterol sulfate 90 mcg/actuation 2 puff inhalation Q4-6H PRN 10/31/24 aerosol inhaler shortness of breath or wheezing #8.5 grams ondansetron 4 mg disintegrating 4 mg PO Q6-8H PRN nausea and 10/31/24 tablet vomiting 5 days #14 tabs prednisone 20 mg tablet 60 mg (3 x 20 mg) PO DAILY 5 days 10/31/24 #15 tabs omeprazole 20 mg capsule,delayed 20 mg PO BID #180 caps 11/03/24 release albuterol sulfate 90 mcg/actuation 2 puff inhalation Q4-6H PRN 11/04/24 aerosol inhaler shortness of breath or wheezing #8.5 grams benzonatate 100 mg capsule 100 mg PO TID PRN cough #12 caps 11/04/24 oseltamivir 75 mg capsule (Tamiflu) 75 mg PO Q12H 5 days #10 caps 11/04/24 prednisone 50 mg tablet 50 mg PO DAILY #5 tabs 11/04/24 Allergies Allergy/AdvReac Type Severity Reaction Status Date / Time No Known Allergies Allergy Verified 11/04/24 12:40 [No Known Allergies*] Review of Systems Review of Systems: Constitutional : No Weight loss, No Fever, No Chills, No Night Sweats, No Fatigue, No Malaise ENT/Mouth : No Hearing loss, No Ear Pain, No Nasal Congestion, No Sinus Pain, No Hoarseness, No sore throat, No Rhinorrhea, No Swallowing Difficulty Eyes: No Eye Pain, No Swelling, No Redness, No Foreign Body, No Discharge, No Vision Changes Cardiovascular : No Chest Pain, No SOB, No Dyspnea on Exertion, No Orthopnea, No Edema, No Palpitations Respiratory : Complaining of cough, wheezing, shortness of breath Gastrointestinal : No Nausea, No Vomiting, No Diarrhea, No Constipation, No abdominal Pain, No Hematochezia, No Melena Genitourinary : no irregular bleeding, No Dysuria, No Urinary Frequency, No Hematuria, No Urinary Incontinence, No Urgency, No Flank Pain, No Urinary Flow Changes, No Hesitancy Musculoskeletal : No joint pain, No Myalgias, No Joint Swelling Skin : No Skin Lesions, No rash Neuro : No Weakness, No Numbness, No Paresthesias, No Loss of Consciousness, No Dizziness, No Headache Psych : No Anxiety/Panic, No Depression, No SI/HI/AH/VH, No Social Issues, Heme/Lymph: No Bruising, No Bleeding,No Lymphadenopathy Endocrine : No Polyuria, No Polydipsia, No Temperature Intolerance PMFSH Past Medical History Medical History Pre-op examination Adult failure to thrive Weight loss H/O fracture of skull Substance abuse Asthma Hepatitis C Chronic back pain Depression Surgical History History of esophagogastroduodenoscopy (EGD) H/O right inguinal hernia repair Family History Family History Mother Stroke Heart problem Father Stroke Heart problem Social History Social History Household Members: Friend(s) Alcohol intake: current Alcohol intake frequency: holidays/special occasions only Cigarettes Per Day: 5.0 Advance Directives: No Advance Directives Information Provided: No Do you have a plan to hurt others: No Plan Current occupational status: disabled Current occupation: left hand Physical Exam Vital Signs: Vital Signs: Last Vital Signs Temp 97.8 F 11/04/24 12:35 Pulse 84 11/04/24 12:35 Resp 20 11/04/24 12:35 BP 136/88 11/04/24 12:35 Pulse Ox 92 11/04/24 12:35 O2 Del Method Room Air 11/04/24 12:35 BMI result Body Mass Index 19.2 Const: Other: Appearance: Alert. Oriented X3. No acute distress. Eyes: Pupils equal, round and reactive to light. ENT: Pharynx normal. Neck: Normal inspection. Neck supple. No lymph nodes noted. No crepitus CVS: Normal heart rate and rhythm. Pulses normal. Normal S1 and S2 Respiratory: No respiratory distress. Breath sounds normal. No Wheezing. No rales , occasional dry cough Abdomen: Soft and nontender. No rigidity. No distention. Skin: Skin warm and dry. Normal skin color. Normal skin turgor. Extremities: No lower extremity edema. No Lacerations. No Rash Neuro: Oriented X 3. No motor deficit. No sensory deficit. Moving all extremities. No slurred speech. CN 2 through 12 grossly intact Psych: calm, cooperative, normal affect Medical Decision Making Medical Decision Making MDM Narrative: My interpretation of labs: Patient's white blood cell count 16.8, patient has been on prednisone for several days. No significant abnormality patient's chemistry, normal troponin serology positive for influenza. Chest x-ray does not show any acute infiltrate/pneumonia My interpretation of electrocardiogram: Normal sinus rhythm, heart rate 82, no ST segment depression or elevation, no T-wave inversion, QTC 385 Patient was ambulated in the emergency room, oxygen saturation 91%. I discussed with the patient not after 4 days of being symptomatic, it is unlikely that Tamiflu will have any effect on him. Patient states that he will like to go give it a try. Differential Diagnosis Differential Diagnoses: The differential diagnosis associated with the presentation includes (Influenza, asthma, viral illness) Lab Data MDM Lab Attestation statement: I reviewed the patient's lab results. 11/04/24 12:48 11/04/24 13:42 Labs: Lab Results 11/04/24 11/04/24 Range/Units 12:48 13:42 WBC 16.8 H (4.8-10.8) X10*3/uL RBC 4.93 (4.60-5.80) X10*6/uL Hgb 15.1 (14.0-18.0) g/dl Hct 44.6 (42.0-52.0) % MCV 90.5 (80.0-98.0) fL MCH 30.6 (27.0-33.0) pg MCHC 33.9 (31.0-36.0) g/dl RDW 15.1 (11.0-16.0) % Plt Count 279 (160-400) X10*3/uL MPV 9.7 (9.4-12.4) fL Immature Gran % (Auto) 0.4 (0.0-0.4) % Neut % (Auto) 93.5 H (45-73) % Lymph % (Auto) 2.0 L (20-40) % Randall % (Auto) 3.9 (2-11) % Eos % (Auto) 0.1 (0-4) % Baso % (Auto) 0.1 (0-2) % Lymph # (Auto) 0.3 L (1.2-4.9) X10*3/uL Randall # (Auto) 0.7 (0.1-1.2) X10*3/uL Eos # (Auto) 0.0 (0.0-0.4) X10*3/uL Baso # (Auto) 0.0 (0.0-0.2) X10*3/uL Abs Immat Gran (auto) 0.07 H (0.00-0.03) X10*3/uL Absolute Neuts (auto) 15.7 H (2.0-8.3) x10*3/uL Absolute Nucleated RBC 0.000 (0.0-0.012) X10*3/uL Nucleated RBC % (auto) 0.0 (0.0-0.2) /100WBC Smear Tech's Comments VERIFIED PT 11.3 (10.9-12.4) SEC INR 1.0 (0.9-1.1) Sodium 138 (135-145) mmol/L Potassium 4.9 (3.3-5.1) mmol/L Chloride 101 (96-108) mmol/L Carbon Dioxide 27 (22-29) mmol/L Anion Gap 15 (12-20) BUN 20 H (9-16) mg/dL Creatinine 1.01 (0.5-1.4) mg/dL Estim Creat Clear Calc 52.2 Estimated GFR > 60 Random Glucose 126 H (60-115) mg/dL Calcium 9.1 D (8.4-10.2) mg/dL Magnesium 2.3 (1.6-2.6) mg/dL Total Bilirubin 0.2 (0.0-1.0) mg/dL AST 52 H (5-37) U/L ALT 57 H (0-40) U/L Alkaline Phosphatase 79 (39-117) U/L Troponin I High Sens 2.8 (<3.5-35.0) ng/L Total Protein 8.3 H (6.5-8.0) g/dL Albumin 4.6 (3.5-5.0) g/dL Influenza Type A (PCR) POSITIVE A (Negative) Influenza Type B (PCR) NEGATIVE (Negative) RSV RNA Qual (PCR) NEGATIVE (Negative) SARS-CoV-2 RNA (RT-PCR) NEGATIVE (Negative) Independent Interpretation I performed an independent interpretation of an: EKG and Plain X-Ray Interpretation: The cardiac, hilar, and mediastinal contours are normal. The lungs are diffusely hyperaerated, clear bilaterally. There are a few scattered calcified granulomata. There is no pneumothorax or pleural effusion. There is no suspicious focal osseous or soft tissue abnormality. Old right rib fractures incidentally noted. XR/XR chest 2V IMPRESSION: COPD. No active superimposed disease Discharge Plan Discharge Clinical Impression: Influenza A, Asthma Patient Disposition: Home, Self-Care Instructions: Asthma (ED), Influenza (ED) Additional Instructions: Please follow-up with your primary care physician tomorrow. If you have any worsening or new symptoms, please return to the emergency room or call 911 Prescriptions: New albuterol sulfate 90 mcg/actuation HFA aerosol inhaler 2 puff inhalation Q4-6H PRN (Reason: shortness of breath or wheezing) Qty: 8.5 1RF prednisone 50 mg tablet 50 mg PO DAILY Qty: 5 0RF benzonatate 100 mg capsule 100 mg PO TID PRN (Reason: cough) Qty: 12 0RF oseltamivir [Tamiflu] 75 mg capsule 75 mg PO Q12H 5 Days Qty: 10 0RF No Action Clenpiq 10 mg-3.5 gram- 12 gram/175 mL solution 175 ml PO DAILY Qty: 350 0RF Rx Instructions: drink first bottle/dose at 5PM evening before colonoscopy; follow with at least 5cups of clear liquid over 5hours. 2nd dose/bottle the next day approximately 6-8 hrs before colonoscopy with at least 4 cups of clear liquids. You must finish drinking clear liquid 4 hours before your colonoscopy. omeprazole 20 mg capsule,delayed release(DR/EC) 20 mg PO BID Qty: 180 2RF gabapentin 300 mg Capsule 300 mg PO TID budesonide-formoterol [Symbicort] 80-4.5 mcg/actuation Hfa Aerosol Inhaler 2 puff INHALATION DAILY prednisone 20 mg tablet 60 mg PO DAILY 5 Days Qty: 15 0RF ondansetron 4 mg tablet,disintegrating 4 mg PO Q6-8H PRN (Reason: nausea and vomiting) 5 Days Qty: 14 0RF albuterol sulfate 90 mcg/actuation HFA aerosol inhaler 2 puff inhalation Q4-6H PRN (Reason: shortness of breath or wheezing) Qty: 8.5 0RF lidocaine [Lidoderm] 5 % adhesive patch,medicated 1 - 2 patch topical DAILY PRN (Reason: pain) mirtazapine 7.5 mg tablet 7.5 mg PO BEDTIME atorvastatin 10 mg tablet 10 mg PO DAILY amlodipine 10 mg tablet 10 mg PO QAM hydrochlorothiazide 25 mg tablet 25 mg PO DAILY Sutab 1.479-0.188- 0.225 gram tablet See Rx Instructions PO PER PKG DIR Qty: 24 0RF Rx Instructions: PO PER PKG DIR Print Language: Bruneian
[2024-11-04 17:26] VITALS: BP 136/88; PULSE 84; RESP 20; TEMP 36.6; O2SAT 93
== END 2024-11-04 17:27 | disposition home or self-care (01) ==
PROVIDERS: Nurse Practitioner Family; Emergency Provider Emergency Medicine; PCP Student in an Organized Health Care Education/Training Program
DX: J10.1 Influenza due to other identified influenza virus with other respiratory manifestations (principal); J45.909 Unspecified asthma, uncomplicated; R06.02 Shortness of breath; Z79.899 Other long term (current) drug therapy; Z03.818 Encounter for observation for suspected exposure to other biological agents ruled out
CPT/HCPCS: 0241U; 36415; 71046; 80053; 83735; 84484; 85025; 85610; 93005; 99283

== ENCOUNTER → 2024-11-04 12:40 | Outpatient (BNV) | payer MEDICARE, MEDICAID, SELFPAY | PROVIDERS: Emergency Provider Emergency Medicine; PCP Student in an Organized Health Care Education/Training Program; Visit Provider Internal Medicine | DX: R07.9 Chest pain, unspecified (principal) | CPT/HCPCS: 93010 ==

== ENCOUNTER → 2024-11-04 12:40 | Outpatient (BNV) | payer MEDICARE, MEDICAID, SELFPAY | PROVIDERS: PCP Student in an Organized Health Care Education/Training Program; Visit Provider Radiology Diagnostic Radiology | DX: R06.02 Shortness of breath (principal) | CPT/HCPCS: 71046 ==

== ENCOUNTER 2024-12-23 13:23 | Outpatient (AMB) | payer MEDICARE, MEDICAID, SELFPAY ==
[2024-12-23 13:28] VITALS: BP 140/91; PULSE 65; BMI 19.6
--- NOTE | 2024-12-23 13:28 | A.OFFVIS_ITS ---
Vital Signs 12/23/24 13:28 Height 5 ft 4 in Weight 114 lb BMI 19.6 BP 140/91 H Blood Pressure Location Rt brachial Position Sitting Pulse 65 Intake Visit Reasons: 6 month follow up Intake Note: Patient in office today in follow up of cirrhosis and weight loss. CC: Patient states that he has been doing well and denies having any new GI concerns. Skin Fitter Required: Yes Accompanied by: Self / Same As Patient Allergies No Known Allergies [No Known Allergies*] Allergy (Verified 12/23/24 13:34) HPI HPI 6 month follow up: Details: Assessment & Plan (1) Dyspepsia: Code(s): R10.13 - Epigastric pain Category: Medical Plan [place] # Devyn Live Patient has been lost to follow-up since 04/2023 at that time I had wanted him to come back in 4 weeks. It also appears he never had a colonoscopy. It is unclear to me and the patient is not directly answering other he cancel the colonoscopy or just no showed. HE says he was too busy working to go to any of his appointments or have his studies. He is a [facility] patient. I explain that it is not reasonable to be on megace custodial especially when we have no studies to know what the underlying pathology is. Also, this can effect the adrenal/corticosteroid axis poorly. I am discontinuing this medication in favor or bid omeprazole - since his major complaint is bloating after eating. I will not reschedule any procedures because he can not committ to making the time with his work. ROV 6 mos. Medications: New omeprazole 20 mg PO BID 60 caps 6RF Discontinued megestrol Discontinued Reason: Doctor's Order 40 mg PO DAILY 30 tabs 6RF R62.7 - Adult failure to thrive On Hold sod picosulf-mag ox-citric ac 10 mg-3.5 gram- 12 gram/175 mL (Clenpiq) Hold Comment: Doctor's Order 175 mL PO DAILY 350 mL 0RF sod sulf-pot chloride-mag sulf 1.479-0.188- 0.225 gram (Sutab) Hold Comment: Doctor's Order PO PER PKG DIR 24 tabs 0RF R63.4 - Abnormal weight los TODAYS VISIT [place] #V Live He continues to do well on his omeprazole 20mg bid. Again, he is unwilling to commit to showing up for a colonoscopy, so I leave him to his PCP to discuss other screening strategies. It seems his PCP ordered Cologuard. He says he was sick all winter with a bad lung infection. He seems to be recovering now. He is following with his PCP about this. ROV 6 mos. [facility] Medical History Pre-op examination Adult failure to thrive Weight loss H/O fracture of skull Substance abuse Asthma Hepatitis C Chronic back pain Depression Surgical History History of esophagogastroduodenoscopy (EGD) H/O right inguinal hernia repair Family History Mother Stroke Heart problem Father Stroke Heart problem Social History Household Members: Friend(s) Alcohol intake: current Alcohol intake frequency: holidays/special occasions only Cigarettes Per Day: 5.0 Current occupational status: disabled Current occupation: left hand Review of Systems Const Denies fatigue, Denies fever(s), Denies night sweats, Denies poor appetite and Denies weight loss ENT Reports Normal hearing present, Denies dental pain, Denies dysphagia, Denies hearing loss, Denies mouth pain, Denies odynophagia, Denies throat swelling, Denies tongue swelling and Reports other (Dentition adequate) Card Reports no additional complaints Resp Reports no additional complaints GI Details: Denies abdominal pain, Denies melena, Denies bloating, Denies hematochezia, Denies constipation, Denies GI cramping, Denies dysphagia, Denies excessive flatus, Denies early satiety, Reports heartburn, Denies diarrhea, Denies nausea, Denies odynophagia, Denies vomiting and Denies hematemesis Skin/Breast Denies pruritus, Denies lesions, Denies rash and Denies jaundice Neuro Reports Normal hearing present and Denies Abnormal speech present Endo Denies fatigue Aller/Immun Denies throat swelling and Denies tongue swelling Physical Exam Vital Signs: Last Vital Signs Pulse 65 12/23/24 13:28 BP 140/91 H 12/23/24 13:28 BMI result Body Mass Index 19.6 Const General: cooperative, no acute distress, well developed and well groomed Nutritional Appearance: well nourished and thin Orientation/consciousness: oriented to person, oriented to place and oriented to time Limitations: language barrier HEENT Head: Yes normocephalic and Yes atraumatic Eyes General: appearance normal, both eyes and all related structures Pupils: Equal, round and reactive pupils present Neck Neck: Yes normal visual inspection and Yes no lymphadenopathy Thyroid: Thyroid normal Resp Effort & Inspection: normal respiratory effort and able to speak in complete sentences Auscultation: clear to auscultation bilaterally Cardio Rate: regular rate Rhythm: regular rhythm Heart sounds: Normal, physiologic split S2 sound present Peripheral pulses: radial pulses present and posterior tibial pulses present GI Inspection: No distended and No Abdominal panniculus present Palpation (GI): Soft to palpation, nontender, no guarding, not rigid and No hepatosplenomegaly present Percussion: Yes normal to percussion Auscultation: normal bowel sounds Rectal Exam - Male: Yes deferred Skin General skin exam: no rashes or lesions noted, turgor normal, skin not dry, no jaundice, No spider nevi and no striae Rashes: no rashes Nails: normal Neuro General: oriented to person, oriented to place and oriented to time Cranial nerves: Yes Equal, round and reactive pupils present and Yes Normal hearing present Speech: No Abnormal speech present Extrem General: Yes normal to inspection, No clubbing, No cyanosis and No edema Psych Appearance: grossly normal and well kempt Mental Status: mental status grossly normal Speech and movement: Normal speech and movement present Affect: normal affect Attitude: cooperative Thought process: Normal thought process present and not confabulating Thought content: Normal thought content present Insight: Limited insight present (Psych) Judgement: Limited judgement present (Psych) Assessment & Plan Assessment & Plan (1) Dyspepsia: Code(s): R10.13 - Epigastric pain Category: Medical Plan [place] #V Live He continues to do well on his omeprazole 20mg bid. Again, he is unwilling to commit to showing up for a colonoscopy, so I leave him to his PCP to discuss other screening strategies. It seems his PCP ordered Cologuard. He says he was sick all winter with a bad lung infection. He seems to be recovering now. He is following with his PCP about this. ROV 6 mos. Medications: Refilled omeprazole 20 mg PO BID 180 caps 2RF Coding Level of Care Code Est Pt Level 3 (29725) Diagnoses Dyspepsia R10.13
== END 2024-12-23 13:59 | disposition home or self-care (01) ==
PROVIDERS: PCP Student in an Organized Health Care Education/Training Program; Visit Provider Nurse Practitioner
DX: R10.13 Epigastric pain (principal)
CPT/HCPCS: 99213

== ENCOUNTER → 2024-12-23 13:23 | Outpatient (BNVA) | payer MEDICARE, MEDICAID, SELFPAY | PROVIDERS: PCP Student in an Organized Health Care Education/Training Program; Visit Provider Nurse Practitioner | DX: R10.13 Epigastric pain (principal) | CPT/HCPCS: 99212 ==

== ENCOUNTER 2025-02-16 08:59 | Outpatient (REF) | payer OTHER, SELFPAY ==
[2025-02-16 12:01] LABS: Hematocrit 44.2 % (42.0-52.0); Hemoglobin 14.3 g/dl (14.0-18.0); Mean Corpuscular HGB Conc 32.4 g/dl (31.0-36.0); Mean Corpuscular Hemoglobin 30.4 pg (27.0-33.0); Mean Corpuscular Volume 93.8 fL (80.0-98.0); Mean Platelet Volume 9.7 fL (9.4-12.4); Platelet Count 279 X10*3/uL (160-400); Red Blood Count 4.71 X10*6/uL (4.60-5.80); Red Cell Distribution Width 14.9 % (11.0-16.0); White Blood Count 7.6 X10*3/uL (4.8-10.8)
[2025-02-16 12:04] LABS: Estimated Average Glucose 111 mg/dL; Hemoglobin A1c % 5.5 % (<6.0)
[2025-02-16 12:39] LABS: Alanine Aminotransferase 33 U/L (0-40); Albumin Level 4.7 g/dL (3.5-5.0); Alkaline Phosphatase 74 U/L (39-117); Anion Gap 11 (12-20); Aspartate Amino Transferase 38 U/L (5-37); Bilirubin Total 0.5 mg/dL (0.0-1.0); Blood Urea Nitrogen 15 mg/dL (9-16); Calcium 9.7 mg/dL (8.4-10.2); Carbon Dioxide 32 mmol/L (22-29); Chloride 104 mmol/L (96-108); Cholesterol 131 mg/dL (<200); Estimated Glomerular Filt Rate > 60; Glucose Random 93 mg/dL (60-115); HDL Cholesterol 34 mg/dL (>40); LDL Cholesterol Calculated 80 mg/dL (<100); Potassium 4.8 mmol/L (3.3-5.1); Sodium 142 mmol/L (135-145); TSH reflex Free T4 1.64 uIU/mL (0.32-4.0); Total Protein 7.4 g/dL (6.5-8.0); Triglycerides 89 mg/dL (<150)
[2025-02-16 12:47] LABS: Prostate Specific Antigen 0.58 ng/mL (<0.05-4.0)
[2025-02-16 12:48] LABS: HBS Num1 105.03 mIU/mL (0-7.99); HBc Num1 6.79 S/CO (0.00-0.79); HBsAGNum1 0.29 S/CO (0.00-0.99); HIV AB/AG Nonreactive (Nonreactive); HIV Num 1 0.07 S/CO (0.00-0.99); Hepatitis B Surface Antigen Negative (Negative); Syphilis Screen Nonreactive (Nonreactive); ~HepC Num1 13.17 S/CO (0.00-0.79); ~Hepatitis B Surface Antibody REACTIVE (Nonreactive); ~Hepatitis C Antibody Reactive (Nonreactive)
[2025-02-16 14:40] LABS: HBc Num2 7.26 S/CO; Hepatitis B Core Antibody Reactive (Nonreactive)
[2025-02-22 14:18] LABS: HCV Log PCR <1.18 NOT DETECTED Log IU/mL (NOT DETECTED); HepC Viral Load <15 NOT DETECTED IU/mL (NOT DETECTED)
== END 2025-02-16 09:00 | disposition home or self-care (01) ==
LOC: HO.HHCL 08:59
PROVIDERS: Visit Provider Student in an Organized Health Care Education/Training Program
DX: Z00.00 Encounter for general adult medical examination without abnormal findings (principal); Z12.5 Encounter for screening for malignant neoplasm of prostate; Z13.1 Encounter for screening for diabetes mellitus; Z13.220 Encounter for screening for lipoid disorders; Z13.0 Encounter for screening for diseases of the blood and blood-forming organs and certain disorders involving the immune mechanism
CPT/HCPCS: 36415; 80053; 80061; 83036; 84153; 84443; 85027; 86704; 86706; 86780; 86803; 87340; 87389; 87522

== ENCOUNTER 2025-03-10 16:42 | Outpatient (REF) | payer OTHER, SELFPAY ==
[2025-03-10 17:32] LABS: Creatinine Urine 253.73 mg/dL; Microalbum/Creatinine Ratio Ur 27.9 ug/mg cr (<30)
== END 2025-03-10 16:43 | disposition home or self-care (01) ==
LOC: HO.HHCLNP 16:42
PROVIDERS: Visit Provider Student in an Organized Health Care Education/Training Program
DX: I10 Essential (primary) hypertension (principal)
CPT/HCPCS: 82043; 82570

== ENCOUNTER 2025-06-22 12:43 | Outpatient (AMB) | payer OTHER, SELFPAY ==
[2025-06-22 12:45] VITALS: BP 136/86; PULSE 70; BMI 19.6
--- NOTE | 2025-06-22 12:45 | MHC.OFFVIS ---
Vital Signs 06/22/25 12:45 Height 5 ft 4 in Weight 114 lb 3.191 oz BMI 19.6 BP 136/86 Blood Pressure Location Lt brachial Position Sitting Pulse 70 Intake Visit Reasons: 6 mo f/u Gerd Intake Note: Pt c/o; reports no abdominal pain or acid reflux. Bias Machine Operator Helper Required: Yes Bias Machine Operator Helper Language: [facility] Nurse Practitioner Services: Bias Machine Operator Helper Present Accompanied by: Self / Same As Patient Allergies No Known Allergies (No Known Allergies*) Allergy (Verified 06/22/25 12:49) HPI HPI 6 mo f/u Gerd: Details: Assessment & Plan (1) Dyspepsia: Code(s): R10.13 - Epigastric pain Category: Medical Plan [place] #Arthur Mccracken He continues to do well on his omeprazole 20mg bid. Again, he is unwilling to commit to showing up for a colonoscopy, so I leave him to his PCP to discuss other screening strategies. It seems his PCP ordered Cologuard. He says he was sick all winter with a bad lung infection. He seems to be recovering now. He is following with his PCP about this. ROV 6 mos. Medications: Refilled omeprazole 20 mg PO BID 180 caps 2RF TODAY'S VISIT FAROESE Dae Mccracken [facility] Medical History Pre-op examination Adult failure to thrive Weight loss H/O fracture of skull Substance abuse Asthma Hepatitis C Chronic back pain Depression Surgical History History of esophagogastroduodenoscopy (EGD) H/O right inguinal hernia repair Family History Mother Stroke Heart problem Father Stroke Heart problem Social History Household Members: Friend(s) Alcohol intake: current Alcohol intake frequency: holidays/special occasions only Cigarettes Per Day: 5.0 Current occupational status: disabled Current occupation: left hand Review of Systems Const Denies fatigue, Denies fever(s), Denies night sweats, Reports poor appetite and Denies weight loss Eyes Details: glasses Reports loss of vision, Reports other visual disturbances and Reports requires corrective lenses ENT Reports Normal hearing present, Denies dental pain, Denies dysphagia, Denies hearing loss, Denies mouth pain, Denies odynophagia, Denies throat swelling, Denies tongue swelling and Reports other (Dentition adequate) Card Reports no additional complaints Resp Reports no additional complaints GI Details: Denies abdominal pain, Denies melena, Denies bloating, Denies hematochezia, Denies constipation, Denies GI cramping, Denies dysphagia, Denies excessive flatus, Denies early satiety, Reports dyspepsia, Reports heartburn, Denies diarrhea, Denies nausea, Denies odynophagia, Reports vomiting and Denies hematemesis Skin/Breast Denies pruritus, Denies lesions, Denies rash and Denies jaundice Neuro Reports Normal hearing present, Denies Abnormal speech present and Reports loss of vision Endo Denies fatigue Aller/Immun Denies throat swelling and Denies tongue swelling Physical Exam Vital Signs: Last Vital Signs Pulse 70 06/22/25 12:45 BP 136/86 06/22/25 12:45 BMI result Body Mass Index 19.6 Const General: cooperative, no acute distress, well developed and well groomed Nutritional Appearance: well nourished and thin Orientation/consciousness: oriented to person, oriented to place and oriented to time Limitations: language barrier HEENT Head: Yes normocephalic and Yes atraumatic Eyes General: appearance normal, both eyes and all related structures Pupils: Equal, round and reactive pupils present Neck Neck: Yes normal visual inspection and Yes no lymphadenopathy Thyroid: Thyroid normal Resp Effort & Inspection: normal respiratory effort and able to speak in complete sentences Auscultation: clear to auscultation bilaterally Cardio Rate: regular rate Rhythm: regular rhythm Heart sounds: Normal, physiologic split S2 sound present Peripheral pulses: radial pulses present and posterior tibial pulses present GI Inspection: No distended and No Abdominal panniculus present Palpation (GI): Soft to palpation, nontender, no guarding, not rigid and No hepatosplenomegaly present Percussion: Yes normal to percussion Auscultation: normal bowel sounds Rectal Exam - Male: Yes deferred Skin General skin exam: no rashes or lesions noted, turgor normal, skin not dry, no jaundice, No spider nevi and no striae Rashes: no rashes Nails: normal Neuro General: oriented to person, oriented to place and oriented to time Cranial nerves: Yes Equal, round and reactive pupils present and Yes Normal hearing present Speech: No Abnormal speech present Extrem General: Yes normal to inspection, No clubbing, No cyanosis and No edema Psych Appearance: grossly normal and well kempt Mental Status: mental status grossly normal Speech and movement: Normal speech and movement present Affect: normal affect Attitude: cooperative Thought process: Normal thought process present and not confabulating Thought content: Normal thought content present Insight: Limited insight present (Psych) Judgement: Limited judgement present (Psych) Assessment & Plan Assessment & Plan (1) GERD (gastroesophageal reflux disease): Code(s): K21.9 - Gastro-esophageal reflux disease without esophagitis Category: Medical (2) Dyspepsia: Code(s): R10.13 - Epigastric pain Category: Medical Plan - The patient is a 64-year-old male presenting with GERD management and refill of omeprazole prescription. - Reports decreased appetite, managing with supplement drinks. He also notes that he does not like to cook. - History of GERD, previously treated Helicobacter pylori infection which was eradicated, maintained on daily morning omeprazole. - Diet limited by aversion to vegetables, grains, inducing gag reflex, mainly consumes refined carbohydrates and protein once daily. - Expressed intolerance to colonoscopy preparation; Cologuard was discussed as a screening alternative. When I showed him the video he says he already has the box at home but he can not complete it because of his visual impairments. He is doing some sort of fecal occult monitoring with his primary care provider. - Reports significant visual impairment affecting daily activities including driving Return office visit in 6 months Medications: Changed From omeprazole 20 mg PO BID 180 caps 2RF To omeprazole 20 mg PO DAILY 90 caps 2RF Discontinued sod picosulf-mag ox-citric ac 10 mg-3.5 gram- 12 gram/175 mL (Clenpiq) drink first bottle/dose at 5PM evening before colonoscopy; follow with at least 5cups of clear liquid over 5hours. 2nd dose/bottle the next day approximately 6-8 hrs before colonoscopy with at least 4 cups of clear liquids. You must finish drinking clear liquid 4 hours before your colonoscopy. Discontinued Reason: Doctor's Order 175 mL PO DAILY 350 mL 0RF 2 doses sod sulf-pot chloride-mag sulf 1.479-0.188- 0.225 gram (Sutab) Discontinued Reason: Doctor's Order PO PER PKG DIR 24 tabs 0RF R63.4 - Abnormal weight loss Coding Level of Care Code Est Pt Level 3 (64154) Diagnoses GERD (gastroesophageal reflux disease) K21.9 Dyspepsia R10.13
--- OUTSIDE RECORDS SUMMARY | 2025-06-22 15:32 | XMS_ITS | Clinical Summary ---
Author Organization [employer] Address [address] [facility] 7[address] [place] [address] Care Team Providers Care Critical Systems Technician Name Role Phone Lori Hernandez MD Primary Care Pro vider Kelsie Basurto PharmD Unavailable Allergies No known active allergies Medications omeprazole (PriLOSEC) [address] capsule Take 1 capsule by mouth every 12 (twelve) hours. take 1 capsule by oral route 2 times every day before a meal 022 Active Blood Pressure Monitoring (Omron 3 Series BP Monitor) device USE EVERY DAY TO CHECK BLOOD PRESSURE 022 Active salicylic acid-lactic acid (Compound W) 17 % external solution Apply topically Once per day. 10 mL 1 024 Active Nebulizers [facility] Use nebulizer as instructed 1 each 025 Active Respiratory Therapy Supplies (Nebulizer/Tubing /Mouthpiece) kit 1 kit if needed in the morning, at noon, and at bedtime (as needed for sob). 1 kit 025 Active tiotropium-olodat yu (Stiolto Respimat) 2.5-2.5 MCG/ACT aerosol solution inhalerIndication s:COPD with acute exacerbation (CMS/HCC) ([facility]) Inhale 2 Inhalation. Once per day. 6 g 5 025 2025 Active mirtazapine (Remeron) 7.5 MG tabletIndications :Depression, unspecified depression type Take 1 tablet (7.5 mg) by mouth at bedtime. 90 tablet 025 Active ipratropium-albut yu (Duo-Neb) 0.5-2.5 mg/3 mL nebulizer solutionIndicatio ns:Moderate persistent asthma with acute exacerbation,COPD with acute exacerbation (CMS/HCC) (HCC) Take 3 mL by nebulization every 6 (six) hours. 180 mL 11 025 2025 Active lidocaine (Lidoderm) 5 % patchIndications: Chronic bilateral low back pain with right-sided sciatica Apply 1 patch topically Once per day. Appy 1-2 patches by topical route every day ( may wear 12 hours ) prn pain 30 patch 1 Active amLODIPine (Norvasc) 10 MG tabletIndications :Primary hypertension Take 1 tablet (10 mg) by mouth in the morning. 90 tablet 1 Active ipratropium (Atrovent) 17 MCG/ACT inhaler Inhale 2 puffs if needed in the morning, at noon, in the evening, and at bedtime for wheezing or shortness of breath. 12.9 g 11 025 2025 Active atorvastatin (Lipitor) 10 MG tabletIndications :Mixed hyperlipidemia TOME 1 TABLETA POR VIA ORAL TODOS [place] 90 tablet 025 Active Diclofenac Sodium 1 % gel APPLY 1 APPLICATION TOPICALLY IF NEEDED EACH DAY (RIGHT ANKLE PAIN). 100 g 1 025 Active Aspirin Low Dose 81 MG chewable tablet CHEW 1 TABLET (81 MG) ONCE PER DAY. 90 tablet 025 Active aspirin 81 MG chewable tablet Chew 1 tablet (81 mg) Once per day. 90 tablet 025 2024 Discontinued Active Problems Problem Noted Date Diagnosed Date Tinea pedis of left foot 03/10/2025 Transaminitis 01/06/2025 Poor memory 01/06/2025 COPD with acute exacerbation (CMS/HCC) Assessment & Plan (11/06/2024 12:49 PM EST): Pt with severe resp restriction in setting of copd and influeza a. No audible crackles or wheezes, Improved aeration and o2 saturation post nebulizer Pt is reliable historian and will seek ER care should prescribed inhalers not work, Nebulizer also prescribed Return to clinic on Saturday for reassessment Moderate persistent asthma with acute exacerbati on 11/06/2024 Assessment & Plan (11/06/2024 12:50 PM EST): See above Insomnia 07/10/2024 History of Helicobacter pylori infection 023 Overview (06/19/2023): Last [facility] GI appt 04/25/21 Discovered 08/2020 EGD 02/2021 [...] > 10 years. PSA wnl 10/18/2017 EGD: 2011 showed small esophageal varices. Recommended repeat in 1 year. Unknown if done. Lung cancer: current smoker, 25 pack year history. Does not meet [facility] screening guidelines. Last Eye visit: Wears reading glasses. No concerns. Last Dental Visit: 8 months ago. [facility] in [place] Benign hypertension 08/20/2022 Overview (04/27/2023): HTN controlled Treating amlodipine 10 mg daily Needs Med rec Assessment & Plan (04/27/2023 11:28 PM EDT): Continue amlodipine 10 mg Schedule RN visit for med rec F/u prn Bilateral cataracts 08/20/2022 Hyperlipidemia 08/20/2022 Overview (04/27/2023): Last lipid [...] f/u needed F/u PRN Cirrhosis of liver (CMS/HCC) 04/27/2020 Overview (04/27/2023): Care managed by GI No recent appt Assessment & Plan (04/27/2023 11:25 PM EDT): Will check on Pt GI appt and confirm when his f/u should be Concern for pt liver Order labs May be due for colonoscopy F/u 3 months or sooner PRN with new PCP Resolved Problems Problem Noted Date Diagnosed Date Resolved Date Influenza A 11/06/2024 01/06/2025 Assessment & Plan (11/06/2024 12:49 PM EST): Pt endorses gradual improvement of symptoms. Foot lesion 07/10/2024 03/10/2025 Encounters Date Type Department Care Team Description 06/05/2025 Refill [facility] [address] [facility] [place] [address] Lori Hernandez MD 06/04/2025 10:00 AM EDT Clinical Support [facility] [address] [place] [address] Angela Swanson RN Poor memory 06/04/2025 Travel 05/31/2025 Telephone [facility] [address] [place] [address] Lori Hernandez MD Referral 05/15/2025 Refill [facility] [address] [place] [address] Lori Hernandez MD 04/29/2025 Refill [facility] [address] [place] [address] Lori Hernandez MD Mixed hyperlipidemia 04/13/2025 Orders Only [facility] [address] [place] [address] Lori Hernandez MD from Last 3 Months Immunizations Immunization Administration Dates Next Due Hep A, Adult 09/16/2003 Hep B, adult 09/16/2003 Influenza injectable quadriv alent IIV4 with preservative 06/18/2016,07/22/2015 Influenza injectable quadriv alent preservative free 10/05/2022,06/06/2021,05/31/2020,10/16,06/06/2017 Influenza, IIV3, injectable 07/12/2011 Influenza, Injectable, MDCK, preservative free 05/11/2024 [place] SARS-CoV-2 Vaccination 12/21/2020 Pfizer Covid-19 Vaccine 12+ 04/17/2022, Pneumococcal Conjugate PCV 20 07/09/2024 Pneumococcal Polysaccharide PPSV23 10/16/2019 RSV Bivalent 01/13/2024 TD (adult), 2 Lf tetanus tox oid, preservative free, adsorbed 08/24/2004 Td (adult), unspecified 07/18/2022 Zoster, Recombinant 12/31/2024 Social History Tobacco Use Types Packs/Day Years Used Date Smoking Tobacco: Former Cigarettes 0.5 50 Smokeless Tobacco: Never Tobacco Cessation:Counseling Given: Not Answered Comments:Smokes tobacco since 12 y until now ,stopped for 9 years,smoking aprox so far for 42 y , smokes 10 cig a day in average 15 cig a day -max 1 PQT a day ---PQT calc 31.5 Alcohol Use Standard Drinks/Week Comments Not Currently 0 (1 standard drink = 0.6 oz pur e alcohol) Depression Answer Date Recorded Patient Health Questionnaire-9 Score 0 03/10/2025 Patient Health Questionnaire-9 Score 0 03/10/2025 Last PHQ-9: Questionnaire Data Not on file 0 03/10/2025 Housing Stability Answer Date Recorded What is [...] Answer Date Recorded Patient Health Questionnaire-2 Score 0 03/10/2025 Internet Access Answer Date Recorded Internet Access Q1 Yes 12/28/2024 Internet Access Q2 I do not want or need it 12/15 Sex and Gender Information Value Date Recorded Sex Assigned at Male 07/16/2022 10:17 AM EDT Legal Sex Male 10:17 AM EDT Gender Identity Male 07/16/2022 10:17 AM EDT Sexual Orientation Straight 07/09/2024 10 :52 AM EDT Last Filed Vital Signs Vital Sign Reading Time Taken Comments Blood Pressure 112/66 03/10/2025 9:46 AM EDT Pulse 58 03/10/2025 9:46 AM EDT Temperature 36.3 C (97.3 F) 03/10/2025 9:46 AM EDT Respiratory Rate 20 03/10/2025 9:46 AM EDT Oxygen Saturation 97% 03/10/2025 9:46 AM EDT Inhaled Oxygen Concentration - - Weight 53.3 kg (117 lb 6.4 oz) 03/10/2025 9:46 A M EDT Height 165.1 cm (5' 5 ) 03/10/2025 9:46 AM EDT Body Mass Index 19.54 03/10/2025 9:46 AM EDT Plan of Treatment Health Maintenance Due Date Last Done Comments CT Colonography 1959 Colonoscopy 1959 FIT DNA/Cologuard 1960 Sigmoidoscopy 1960 Hepatitis B Vaccines (2 of 3 - Risk 3-dose series) 10/14/2003 09/16/2003 Hepatitis A Vaccines (2 of 2 - Risk 2-dose series) 03/16/2004 09/16/2003 DTaP/Tdap/Td Vaccines (1 - Tdap) 07/19/2022 07/18/2022, 08/24/2004 Zoster Vaccines (2 of 2) 02/25/2025 12/31/2024 Alcohol/Substance Use Screening 08/05/2025 08/05/2024 COVID-19 Vaccine ( season) 2025 06/10/2025, 04/17/2022, 07/26/2021, Additional history exists SDOH Screening 12/28/2025 12/28/2024 Depression Screening 03/10/2026 03/10/2025, 03/10/20 Tobacco Screening 03/10/2026 03/10/2025 Colorectal Cancer Screening 04/13/2026 FIT 04/13/2026 04/13/2025 FOBT 04/13/2026 04/13/2025 Lipid Panel 02/16/2030 02/16/2025, 03/17, 04/24/2021 RSV Patients and Patients Aged 60 years or older Completed 01/13/2024 Pneumococcal Vaccine: 50+ Years Completed 07/09/2024, 10/16/2019 Influenza Vaccine Completed 05/20/2025, , 10/05/2022, Additional history exists HIB Vaccines Aged Out No longer eligi ble based on patient's age to complete this topic HPV Vaccines Aged Out No longer eligi ble based on patient's age to complete this topic IPV Vaccines Aged Out No longer eligi ble based on patient's age to complete this topic Meningococcal B Vaccine Aged Out No l onger eligible based on patient's age to complete [...] Procedure Name Priority Date/Time Associated Diagnosis Comments FECAL GLOBIN BY IMMUNOCHEMISTRY Routine 04/13/2025 12:00 AM EDT LIPID PANEL, STANDARD Routine 02/16/2025 9:03 AM EDT Annual physical exam from Last 3 Months or Most Recently Relevant to Health Maintenance Results * Fecal Globin By Immunochemistry (04/13/2025 12:00 AM EDT) Fecal Globin By Immunochemistry SEE NOTE [facility] Comment: FECAL GLOBIN BY IMMUNOCHEMISTRY Micro Number: [id number] Test Status: Final Specimen Source: Insure (tm) fobt test card Specimen Quality: Adequate Fecal Globin: Not Detected Reference Range: Not Detected NOTE: Approved collection includes sample of toilet water adjacent to stool. Other methods of collection such as stool transferred from diaper, bedpan, or commode to toilet water may lead to inaccurate results. 04/13/2025 04/20/2025 7:0 5 AM EDT Narrative [facility] - 04/21/2025 9:19 AM EDT FASTING: UNKNOWN Lori Lewis MD LAB BODY FLUIDS A ND STOOLS ORDERABLES Final Result [facility] [address], [place] [address] [employer] [place] [employer] [address] [place] [address] * (ABNORMAL) Lipid Panel, Standard (02/16/2025 9:03 AM EDT) Triglycerides 89 <150 mg/dL [facility] Comment:Desirable Triglyceri de: less than 150 mg/dLBorderline High Triglyceride 150-199 mg/dLHigh Triglyceride: 200-499 mg/dLVery High Triglyceride: greater than or equal to 5OO mg/dL Cholesterol 131 <200 mg/dL [facility] Comment:Desirable Cholestero l: less than 200 mg/dLBorderline High Cholesterol: 200-239 mg/dLHigh Cholesterol: greater than 239 mg/dL LDL Cholesterol Calculated 80 <100 mg/dL [facility] Comment:Desirable LDL: less than 100 mg/dLNear Optimal/Above Optimal LDL: 110- 129 mg/dLBorderline High LDL: 130-159 mg/dLHigh LDL: 160-189 mg/dLVery High LDL: greater than or equal to 190 mg/dL HDL Cholesterol 34(L) >40 mg/dL [facility] Comment:Desirable HDL: great er than 40 mg/dL Note: This HDL assay may give artificially low results in patients with liver disease. Blood Venous blood specimen / Unknown 02/16/2025 9:03 AM EDT 02/16/2025 11:40 AM EDT us Lori Lewis MD LAB BLOOD ORDERAB LES Final Result [facility] [address] [place], [place] [id number] [phone] from Last 3 Months or Most Recently Relevant to Health Maintenance [place] [address] [place] [address] STANDARD [facility] STANDARD Care Teams Critical Systems Technician Relationship Specialty Start Date End Date Lori Hernandez MD [address] [place] [id number] PCP - General Internal Medicine 06/20/23 Kelsie Basurto, YohannesD [address] [place] [id number] Pharmacist Internal Medicine 08/28/24
--- OUTSIDE RECORDS SUMMARY | 2025-06-22 15:32 | XMS_ITS | Encounter Summary ---
Author Organization [employer] Address [address] [facility] 7t [place] [address] Care Team Providers Care Devulcanizer Head Name Role Phone Lori Hernandez MD Primary Care Pro vider Kelsie Basurto PharmD Unavailable [phone]- [phone] Encounter Details Date Type Department Care Team (Late st Contact Info) Description 01/01/2025 Orders Only [facility] [address] [place], [place] [phone] Lady Cooper [place] Social History Tobacco Use Types Packs/Day Years Used Date Smoking Tobacco: Former Cigarettes 0.5 50 Smokeless Tobacco: Never Comments:Smokes [...] Diagnoses Not on filedocumented in this encounter Additional Health Concerns Assessment Noted Time PHQ-9 Depression Total Score: 3 07/09/20 24 10:13 AM EDT documented as of this encounter Care Teams Devulcanizer Head Relationship Specialty Start Date End Date Lori Hernandez MD [address] [place] [address] PCP - General Internal Medicine 06/20/23 Kelsie Basurto PharmD [address] [place] [address] Pharmacist Internal Medicine 08/28/24 documented as of this encounter
--- OUTSIDE RECORDS SUMMARY | 2025-06-22 15:32 | XMS_ITS | Encounter Summary ---
Author Organization [employer] Address [address] [facility] 7t [place] [address] Care Team Providers Care Fryer Line Helper Name Role Phone Lori Hernandez MD Primary Care Pro vider Kelsie Basurto PharmD Unavailable [phone] Encounter Details Date Type Department Care Team (Late st Contact Info) Description 03/26/2024 Telephone [facility] [address] [place] [address] Lori Hernandez MD [address] [place] [address] Social History Tobacco Use Types Packs/Day Years Used Date Smoking Tobacco: Every Day Cigarettes 0.5 50 Smokeless Tobacco: Never Comments:Cutting down, state s he sometimes only smokes 2 cigs/day Alcohol Use Standard Drinks/Week Comments Not Currently 0 (1 standard drink = 0.6 oz pur e alcohol) Housing Stability Answer Date Recorded What is your housing situation today? I have housing today, but I am worried about losing housing in the future 07/27/[address] you li ve. Do you have problems with any of the following? None of the above 07/27/2023 Food Insecurity Answer Date Recorded Within the past 12 months, y ou worried that your food would run out before you got money to buy more: Never True 07/27/2023 Within the past 12 months,th e food you bought just didn't last and you didn't have enough money to get more: Never True 07/2023 Transportation Answer Date Recorded In the past 12 months, has l ack of transportation kept you from medical appts, meetings, work or from getting things needed for daily living? No 07/27/2023 Utilities Answer Date Recorded In the past 12 months, has t he electric, gas, oil or water company threatened to shut off services in your home? No 07/27/2023 Sex and Gender Information Value Date Recorded Sex Assigned at Male 07/16/2022 10:17 AM EDT Legal Sex Male 10:17 AM EDT Gender Identity Male 07/16/2022 10:17 AM EDT Sexual Orientation Straight 07/09/2024 10 :52 AM EDT documented as of this encounter Plan of Treatment Not on file documented as of this encounter Visit Diagnoses Not on filedocumented in this encounter Care Teams Fryer Line Helper Relationship Specialty Start Date End Date Lori Hernandez MD [address] [place] [address] PCP - General Internal Medicine 06/20/23 Kelsie Basurto PharmD [address] [place] [address] Pharmacist Internal Medicine 08/28/24 documented as of this encounter
--- OUTSIDE RECORDS SUMMARY | 2025-06-22 15:32 | XMS_ITS | Encounter Summary ---
Author Organization [employer] Address [address] [facility] 7t [place] [address] Care Team Providers Care Servicer Name Role Phone Tere Roca Primary Care Provider Lori Sanchez MD Primary Care Pro vider Kelsie Basurto PharmD Unavailable [phone]- [phone] Reason for Visit * Reason Onset Date Comments [facility] 09/06/2022 I called to info rm the pt that he needs to schedule a TP appt with ANKIT Cosme, so that a [facility] PCP order form from [facility] could be completed. There was no answer and no voicemail, therefore, I was unable to leave a msg. Encounter Details Date Type Department Care Team (Late st Contact Info) Description 09/06/2022 Telephone [facility] [address] [place], [place] [phone] Teer Roca FNP [facility] (I called to inform the pt that he needs to schedule a TP appt with ANKIT Cosme, [facility] could be completed. There was no [...] on filedocumented in this encounter Care Teams Servicer Relationship Specialty Start Date End Date Tere Roca FNP PCP - General Family Medicine 05/09/22 06/19/23 Lori Hernandez MD [address] [place] [address] PCP - General Internal Medicine 06/20/23 Kelsie Basurto PharmD [address] [place] [phone] Pharmacist Internal Medicine 08/28/24 documented as of this encounter
== END 2025-06-22 13:25 | disposition home or self-care (01) ==
PROVIDERS: PCP Student in an Organized Health Care Education/Training Program; Visit Provider Nurse Practitioner
DX: K21.9 Gastro-esophageal reflux disease without esophagitis (principal); R10.13 Epigastric pain
CPT/HCPCS: 99213

== ENCOUNTER → 2025-06-22 12:43 | Outpatient (BNVA) | payer OTHER, SELFPAY | PROVIDERS: PCP Student in an Organized Health Care Education/Training Program; Visit Provider Nurse Practitioner | DX: K21.9 Gastro-esophageal reflux disease without esophagitis (principal); R10.13 Epigastric pain | CPT/HCPCS: 99212 ==